=== PATIENT | female | born 1940 | race Caucasian/White ===

== ENCOUNTER 2017-04-01 03:21 | Emergency (ER) | payer MEDICARE ==
[2017-04-01 04:01] LABS: BASOPHILS 0.2 % (0-2); EOSINOPHILS 0.1 % (0-7); HEMATOCRIT 42.3 % (36.0-48.0); HEMOGLOBIN 14.6 g/dL (12-16); IMMATURE GRANULOCYTES 0.7 % (0-5); LYMPHOCYTES 7.1 % (15-50); MCH 30.7 pg (26.0-34.0); MCHC 34.5 g/dL (31.0-37.0); MCV 88.9 fL (80.0-100.0); MEAN PLATELET VOLUME 9.4 fL (7.4-10.4); MONOCYTES 4.5 % (2-11); NEUTROPHILS 87.4 % (40-80); PLATELET COUNT 189 10x3/uL (130-400); RBC 4.76 10x6/uL (4.00-5.40); RDW 13.8 % (11.5-14.5); WBC 10.6 10x3/uL (4.8-10.8)
[2017-04-01 04:16] LABS: ALBUMIN 3.3 g/dL (3.4-5.0); ANION GAP 16.2 mmol/L (8-16); BILIRUBIN - TOTAL 0.2 mg/dL (0.2-1.3); CALCIUM 9.6 mg/dL (8.5-10.1); CREATININE - SERUM 1.8 mg/dL (0.6-1.3); POTASSIUM - SERUM 5.2 mmol/L (3.5-5.1); PROTEIN - SERUM 7.3 g/dL (6.4-8.2)
[2017-04-01 04:41] LABS: APPEARANCE CLEAR (CLEAR); BILIRUBIN NEGATIVE (NEGATIVE); COLOR YELLOW (YELLOW); GLUCOSE NEGATIVE (NEGATIVE); KETONE NEGATIVE (NEGATIVE); LEUKOCYTE ESTERASE NEGATIVE (NEGATIVE); NITRITE NEGATIVE (NEGATIVE); PROTEIN TRACE mg/dL (NEGATIVE); SPECIFIC GRAVITY 1.015 (1.005-1.020); UROBILINOGEN NORMAL (NORMAL)
[2017-04-01 04:43] LABS: BACTERIA NONE SEEN /hpf (NONE SEEN); EPITHELIAL CELLS NSEEN /hpf (0-5); RED CELLS - URINE 0-5 /hpf (0-5); WHITE CELLS - URINE NSEEN /hpf (0-5)
[2017-04-03 02:57] VITALS: BMI 35.2
== END 2017-04-01 05:01 | disposition home or self-care (01) ==
LOC: D.ER 03:21
PROVIDERS: Emergency Medicine
DX: R11.0 Nausea (principal); N18.9 Chronic kidney disease, unspecified; E74.39 Other disorders of intestinal carbohydrate absorption; E87.2 Acidosis; F41.9 Anxiety disorder, unspecified

== ENCOUNTER 2017-04-02 13:49 | Inpatient (IN) | payer MEDICARE ==
[~2017-04-02] VITALS: Ht 152.4 cm; Wt 88.8 kg
--- NOTE | ~2017-04-02 | HEMODYNAMI ---
PATIENT:PALMIRA SIMONS MEDICAL RECORD: [id number] : 36 [id number] ADMISSION DATE: 04/03/17 Generatedon:04/09/201712:04 Patient name: PALMIRA SIMONS Patient #: [id number] SSN: : 1940 Date of study: 04/09/2017 Page: Of Hemodynamic Procedure Report Patient Data Patient Demographics Procedure consent was obtained First Name: PALMIRA Gender: Female Last Name: KRISTYN : 1940 Patient #: [id number] Age: 76 year(s) Race: Unknown Additional ID: [id number] Contact details [address]: [address] [place] [address] State: [place] City: [place] Zip code: [address] Past Medical History Allergies: No known allergies Admission Admission Data Admission Date: 04/03/2017 Admission Time: 16:03 Admit Source: Other Room #: D.2103 Lab Results Lab Result Date: 04/07/2017 Lab Result Time: 0:00 Biochemistry Name Units Result Min Max Creatinine mg/dl 1.4 --(----)*- 0.6 1.3 CBC Name Units Result Min Max Hemoglobin g/dl 10.9 *-(----)-- 13.5 17.5 Procedure Procedure Types Cath Procedure PCI Procedure Coronary Stent Initial x2 Miscellaneous Procedures Moderate Sedation up to 45 minutes Procedure Description Procedure Date Procedure Date: 04/09/2017 Procedure Start Time: 11:31 Procedure End Time: 12:04 Procedure Staff Name Function Vasquez Ortiz MD Performing Physician Radhames Fortune RT Scrub Jayden Araujo RN Nurse Bri Palafox RT Monitor Procedure Data Cath Procedure Fluoroscopy Diagnostic fluoroscopy Total fluoroscopy Time: 6.1 time: 6.1 min min Diagnostic fluoroscopy Total fluoroscopy dose: 728 dose: 728 mGy mGy Contrast Material Contrast Material Type Amount (ml) Isovue 300 101 Entry Location Entry Primary Successful Side Size Upsize Upsize Entry Closure Flores ccessful Closure Location (Fr) 1 (Fr) 2 (Fr) Remarks Device Remarks Radial Right 6 Fr Mechanical artery Short Compression Estimated blood loss: 10 ml Procedure Complications No complications Procedure Medications Medication Administration Route Dosage Oxygen NC 2 l/min Heparin Flush Bag added to field 2 bags (1000units/500ml NS) 0.9% NaCl I.V. 100 ml/hr Radial Cocktail added to field 1 syringe (Verapomil 2mg/Nitro 400mcg/Heparin 1500units) Fentanyl I.V. 50 mcg Versed I.V. 1 mg Fentanyl I.V. 50 mcg Versed I.V. 1 mg Fentanyl I.V. 50 mcg Fentanyl I.V. 50 mcg Versed I.V. 1 mg Heparin Bolus I.V. 8000 units Versed I.V. 1 mg Nitroglycerin IC/IA I.C. 100 mcg Radial Cocktail I.A. 1 syringe (Verapomil 2mg/Nitro 400mcg/Heparin 1500units) Plavix P.O. 600 mg Hemodynamics Rest HGB: 10.9 (g/dl) Heart Rate: 76 (bpm) Snapshots Pre Cath Intra NCS Post Cath Vital Signs Time Heart Resp SPO2 etCO2 [id number] NIBP (mmHg) Rhythm Pain Sedation Rate (ipm) (%) (mmHg) (mmHg) Status Level (bpm) 11:12:32 84 18 96 0 0 159/76(134) NSR 0 (11) 10(A) , No pain 11:16:54 77 17 80 0 0 134/67(119) NSR 0 (11) 10(A) , No pain 11:21:10 77 17 94 0 0 137/67(98) NSR 0 (11) 10(A) , No pain 11:25:30 77 18 95 0 0 132/72(103) NSR 0 (11) 10(A) , No pain 11:29:53 77 16 95 0 0 119/65(101) NSR 0 (11) 9(A) , No pain 11:34:07 89 19 96 0 0 104/56(76) NSR 0 (11) 9(A) , No pain 11:38:19 84 16 94 0 0 111/56(90) NSR 0 (11) 9(A) , No pain 11:42:31 86 16 94 0 0 119/61(79) NSR 0 (11) 9(A) , No pain 11:46:44 84 17 95 0 0 134/70(104) NSR 0 (11) 9(A) , No pain 11:51:04 82 17 96 0 0 141/70(99) NSR 0 (11) 9(A) , No pain 11:55:18 82 17 96 0 0 131/68(106) NSR 0 (11) 9(A) , No pain 11:59:35 85 18 98 0 0 149/79(124) NSR 0 (11) 10(A) , No pain 12:03:55 82 15 97 0 0 146/80(127) NSR 0 (11) 10(A) , No pain Medications Time Medication Route Dose Verified Delivered Reason Note s Effectiveness by by 11:15:32 Oxygen NC 2 l/min Jayden Carpenter Per physician Van Araujo RN RN 11:15:40 Heparin Flush added 2 bags Jayden Jayden used for Bag to Van Araujo RN procedure (1000units/500ml field REY NS) 11:15:49 0.9% NaCl I.V. 100 Jayden Jayden Per physician ml/hr Van Araujo RN RN 11:15:58 Radial Cocktail added 1 Jayden Jayden used for (Verapomil to syringe Van Araujo RN procedure 2mg/Nitro RN 400mcg/Heparin 1500units) 11:23:04 Fentanyl I.V. 50 mcg Jayden Jayden for sedation Van Araujo RN RN 11:23:10 Versed I.V. 1 mg Jayden Jayden for sedation Van Araujo RN RN 11:25:54 Fentanyl I.V. 50 mcg Jayden Jayden for sedation Van Araujo RN RN 11:25:59 Versed I.V. 1 mg Jayden Jayden for sedation Van Araujo RN RN 11:29:55 Fentanyl I.V. 50 mcg Jayden Jayden for sedation Van Araujo RN RN 11:32:19 Radial Cocktail I.A. 1 Jayden Vasquez for (Verapomil syringe Van king 2mg/Nitro RN 400mcg/Heparin 1500units) 11:33:16 Fentanyl I.V. 50 mcg Jayden Jayden for sedation Van Araujo RN RN 11:34:54 Versed I.V. 1 mg Jayden Jayden for sedation Van Araujo RN RN 11:36:47 Heparin Bolus I.V. 8000 Vasquez Jayden for units Angel Araujo RN anticoagulation 11:43:54 Versed I.V. 1 mg Vasquez Carpenter for sedation Angel Araujo RN 11:54:26 Nitroglycerin I.C. 100 mcg Jayden Ovalle for IC/IA Van Ortiz MD vasodilation RN 12:02:26 Plavix P.O. 600 mg Jayden Carpenter for Van Araujo RN antiplatelet RN therapy Procedure Log Time Note 10:40:52 Informed consent obtained and on chart 10:41:14 Admit Source: Other 10:41:16 Diagnostic Cath status Elective 10:41:20 Time tracking: Regular hours 10:41:24 Plan of Care:Hemodynamics will remain stable., Cardiac rhythm will remain stable., Comfort level will be maintained., Respiratory function will remain adequate., Patient/ family verbilizes understanding of procedure., Procedure tolerated without complication., Recovers from procedure without complications.. 10:41:28 Jayden Araujo RN sent for patient. Start room use. 11:05:11 Patient received from PCU to CCL 1 Alert and oriented. Tansferred to table in Supine position. 11:05:13 Warm blankets applied, and jori hugger turned on for patient comfort. 11:05:13 Correct patient and procedure confirmed by team. 11:05:14 ECG and BP/O2 sat monitors applied to patient. 11:05:15 Full Disclosure recording started 11:10:22 Vital chart was started 11:15:32 Oxygen 2 l/min NC was administered by Jayden Araujo RN; Per physician; 11:15:40 Heparin Flush Bag (1000units/500ml NS) 2 bags added to field was administered by Jayden Araujo RN; used for procedure; 11:15:44 Baseline sample Acquired. 11:15:47 Rhythm: sinus rhythm 11:15:49 0.9% NaCl 100 ml/hr I.V. was administered by Jayden Araujo RN; Per physician; 11:15:58 Radial Cocktail (Verapomil 2mg/Nitro 400mcg/Heparin 1500units) 1 syringe added to field was administered by Jayden Araujo RN; used for procedure; 11:17:36 H&P Date Dictated: 04/06/2017 Within 30 days and on chart.. 11:17:38 Pre-procedure instructions explained to patient. 11:17:38 Pre-op teaching completed and patient verbalized understanding. 11:17:40 Family in waiting room. 11:17:41 Patient NPO since Midnight. 11:17:49 Is the patient allergic to Iodine/contrast media? No. 11:17:51 Is patient on blood thinner?No 11:19:32 Patient diabetic? Yes. 11:19:34 If diabetic: On Metformin? No 11:19:42 Previous problem with sedation/anesthesia? No ? 11:19:45 Snore? Yes 11:19:48 Sleep apnea? No 11:19:50 Deviated septum? No 11:19:51 Opens mouth fully? Yes 11:19:51 Sticks out tongue? Yes 11:19:55 Airway obstruction? No ? 11:19:59 Dentures? No ? 11:20:03 Pre procedure: left dorsailis pedis pulse 2+ Normal; easily identifiable; not easily obliterated 11:20:05 Modified Morris's test Ulnar < 7 seconds 11:20:06 Patient pain scale 0/10 ?. 11:20:16 IV patent on arrival in left hand with 0.9% NaCl at [facility]. 11:20:28 Lab results completed and on chart. 11:20:37 Right Radial & Left Groin area was prepped with chlora-prep and draped in sterile fashion 11:20:38 Alarms reviewed by R. N. 11:20:38 Sharps counted by scrub and verified by R.N. 11:20:43 Use device set Radial PCI 11:20:44 Acist Syringe opened to sterile field. 11:20:44 Acist Hand Control opened to sterile field. 11:20:45 Bag Decanter opened to sterile field. 11:20:46 Medline Cath Pack opened to sterile field. 11:20:46 Merit BasixCompak Inflation Kit opened to sterile field. 11:20:47 Terumo 6Fr Slender Glidesheath opened to sterile field. 11:20:48 Acist Manifold opened to sterile field. 11:20:48 Tegaderm 4 x 4 opened to sterile field. 11:20:49 St Nikolay 260cm J .035 wire opened to sterile field. 11:21:56 Final Timeout: patient, procedure, and site verified with staff and physician. All members of the team are in agreement. 11:22:00 Right Radial site verified by team. 11:22:20 Physical assessment completed. ASA score P 2 - A patient with mild systemic disease as per Vasquez Ortiz MD. 11:22:25 Sedation plan: IV Moderate Sedation Versed, Fentanyl 11:23:04 Fentanyl 50 mcg I.V. was administered by Jayden Araujo RN; for sedation; 11:23:10 Versed 1 mg I.V. was administered by Jayden Araujo RN; for sedation; 11:25:54 Fentanyl 50 mcg I.V. was administered by Jayden Araujo RN; for sedation; 11::59 Versed 1 mg I.V. was administered by Jayden Araujo RN; for sedation; 11:29:55 Fentanyl 50 mcg I.V. was administered by Jayden Araujo RN; for sedation; 11:31:28 Procedure started. 11:31:32 Local anesthetic to right radial artery with Lidocaine 2% by Vasquez Ortiz MD.INITIAL ACCESS ONLY 11:32:10 A 6 Fr Short sheath was inserted into the Right Radial artery 11:32:13 Zero performed for pressure channel P1 11:32:19 Radial Cocktail (Verapomil 2mg/Nitro 400mcg/Heparin 1500units) 1 syringe I.A. was administered by Vasquez Ortiz MD; for vasodilation; 11:32:39 Medtronic Launcher 6Fr AR 1.0 guide catheter opened to sterile field. 11:32:40 Cordis 6FR XBLAD 3.5 guide catheter opened to sterile field. 11:33:16 Fentanyl 50 mcg I.V. was administered by Jayden Araujo RN; for sedation; 11:34:16 6 Fr AR 1.0 guide catheter was inserted over the wire 11:34:54 Versed 1 mg I.V. was administered by Jayden Araujo RN; for sedation; 11:36:47 Heparin Bolus 8000 units I.V. was administered by Jayden Araujo RN; for anticoagulation; 11:39:02 BMW wire advanced. 11:40:33 Inflation Number: 1 A Medtronic Integrity 3.0 X 26 stent was prepped and advanced across the Prox RCA. The stent was deployed at 14 ONEYDA for 0:19 (min:sec). 11:40:59 Stent catheter was removed intact over wire. 11:41:00 Wire removed. 11:41:01 Guide catheter removed. 11:42:48 6 Fr XBLAD 3.5 guide catheter was inserted over the wire 11:43:54 Versed 1 mg I.V. was administered by Jayden Araujo RN; for sedation; 11:46:09 BMW wire advanced. 11:50:21 Inflation Number: 1 A Medtronic Integrity 3.0 X 12 stent was prepped and advanced across the Prox LAD. The stent was deployed at 12 ONEYDA for 0:14 (min:sec). 11:52:45 Stent catheter was removed intact over wire. 11:54:26 Nitroglycerin IC/IA 100 mcg I.C. was administered by Vasquez Ortiz MD; for vasodilation; 11:55:57 Wire removed. 11:55:58 Guide catheter removed. 11:56:14 Terumo TR Band Standard opened to sterile field. 11:56:25 Sheath removed intact; hemostasis achieved with Mechanical Compression to the Right Radial artery. 11:56:27 Procedure ended.(Physican Out) 11:56:42 Fluoroscopy time 06.10 minutes. 11:56:47 Flurop Dose total: 728 11:56:47 Fluoroscopy dose: 728 mGy 11:57:18 Sharps counted by scrub and verified by R.N. 11:57:25 TR band inflated with 12cc of air. 11:57:26 Insertion/operative site no bleeding no hematoma. 11:57:33 Post right radial artery:stable, clean and dry 11:57:36 Post Procedure Pulses reassessed and unchanged 11:57:39 Post-procedure physical assessment completed. ASA score P 2 - A patient with mild systemic disease as per Vasquez Ortiz MD. 11:57:41 Post procedure rhythm: unchanged. 11:57:44 Estimated blood loss: 10 ml 11:57:46 Post procedure instruction explained to patient.Patient verbalizes understanding. 11:57:46 Patient needs reinforcement of post procedure teaching. 11:58:20 Procedure type changed to Cath procedure, PCI procedure, Coronary Stent Initial x2, Miscellaneous Procedures, Moderate Sedation up to 45 minutes 11:59:53 Contrast amount:Isovue 300 101ml. 12:00:17 Procedure Complication : No complications 12:00:23 See physician's report for complete and final results. 12:00:51 Cordero BMW Recluse 2 J-tip 300cm 0.014 guide wir opened to sterile field. 12:01:09 High Pressure Extension Tubing (Ortiz) opened to sterile field. 12:01:36 Cook 21G 4cm Radial Needle opened to sterile field. 12:02:26 Plavix 600 mg P.O. was administered by Jayden Araujo RN; for antiplatelet therapy; 12:02:44 Procedure and supply charges have been captured, reviewed, submitted and are correct. 12:04:07 Vital chart was stopped 12:04:11 Report given to PCU. 12:04:15 Patient transfered to PCU with Bed. 12:04:22 Procedure ended. 12:04:22 Full Disclosure recording stopped 12:04:25 End room use (Document Last) Intervention Summary Intervention Notes Time ActionType Lesion and Equipment Action# Pressure Duration Attributes Used 11:40:33 Place stent Prox RCA Medtronic 1 14 00:19 Integrity 3.0 X 26 stent 11:50:21 Place stent Prox LAD Medtronic 1 12 00:14 Integrity 3.0 X 12 stent Device Usage Item Name Manufacture Quantity Catalog Hospital Part Current Minimal Lot# / Number Charge Number Stock Stock Serial# Code Acist Acist 1 [id number] 703520 620534 820944 20 Syringe Medical Systems Inc Acist Hand Acist 1 58032 660927 428428 925779 5 Control Medical Systems Inc Bag Microtek 1 2002S 358831 25195 650807 5 DecDanotek [employer] Medline Cardinal 1 [id number] 075662 03305 628627 TruQC [facility] Merit 1 [id number] 057179 675501 584669 15 BasixRentersQ Medical Inflation Kit Terumo 6Fr Terumo 1 [id number] 985332 971841 016821 40 Slender Glidesheath Acist Acist 1 72448 282333 012771 024123 5 Manifold Medical Systems Inc Tegaderm 4 3M 1 [id number] 216717 330930 266439 [address] Nikolay 1 093367 297247 907133 855115 30 260cm J .035 wire Medtronic Medtronic 1 [id number] 671697 73270 220262 1 Launcher 6Fr AR 1.0 guide catheter Cordis 6FR Cardinal 1 [id number] 760350 677746 819039 10 XBLAD 3.5 Health guide catheter Medtronic Medtronic 1 [id number] 107616 741338 1 Integrity 3.0 X 26 stent Medtronic Medtronic 1 [id number] 651101 379484 1 [id number] Integrity 3.0 X 12 stent Terumo TR Terumo 1 [id number] 469670 239416 693967 40 Band Standard Cordero BMW Cordero 1 [id number] 994524 675654 897090 5 Recluse 2 Vascular J-tip 300cm 0.014 guide wir High Merit 1 [id number] 067775 46631 047588 10 Pressure Medical Extension Tubing (Ortiz) Cook 21G Bountii 1 [id number] 628658 914852 449543 5 4cm Radial Needle Signature Audit [place] Stage Time Signature Unsigned Intra-Procedure 04/09/2017 Bri 12:04:36 PM Counts RT(R) Signatures Monitor : Bri Signature : Counts RT Date : Time : [place] [id number] [place] [address]
--- NOTE | ~2017-04-02 | HEMODYNAMI ---
PATIENT:PALMIRA SIMONS MEDICAL RECORD: [id number] : 36 LOCATION:[address] ADMISSION DATE: 04/03/17 Generatedon:04/07/201715:16 Patient name: PALMIRA SIMONS Patient #: [id number] SSN: : 1940 Date of study: 04/07/2017 Page: Of Hemodynamic Procedure Report Patient Data Patient Demographics Procedure consent was obtained First Name: PALMIRA Gender: Female Last Name: KRISTYN : 1940 Patient #: [id number] Age: 76 year(s) Race: Unknown Additional ID: [id number] Contact details [address]: [address] [place] [address] State: [place] City: [place] Zip code: [address] Past Medical History Allergies: No known allergies Admission Admission Data Admission Date: 04/03/2017 Admission Time: 16:03 Room #: D2103 Lab Results Lab Result Date: 04/07/2017 Lab Result Time: 0:00 Biochemistry Name Units Result Min Max Creatinine mg/dl 1.4 --(----)*- 0.6 1.3 CBC Name Units Result Min Max Hemoglobin g/dl 10.9 *-(----)-- 13.5 17.5 Procedure Procedure Types Cath Procedure Diagnostic Procedure [facility] w/Coronaries Miscellaneous Procedures Moderate Sedation up to 30 minutes Procedure Description Procedure Date Procedure Date: 04/07/2017 Procedure Start Time: 14:54 Procedure End Time: 15:15 Procedure Staff Name Function Vasquez Ortiz MD Performing Physician Radhames Fortune RT Scrub Leeann Nolen RN Nurse Jayden Araujo RN Gas Station Manager Bri Palafox RT Monitor Procedure Data Cath Procedure Fluoroscopy Diagnostic fluoroscopy Total fluoroscopy Time: 3.1 time: 3.1 min min Diagnostic fluoroscopy Total fluoroscopy dose: 424 dose: 424 mGy mGy Contrast Material Contrast Material Type Amount (ml) Isovue 300 68 Entry Location Entry Primary Successful Side Size Upsize Upsize Entry Closure Succes sful Closure Location (Fr) 1 (Fr) 2 (Fr) Remarks Device Remarks Femoral Right 5 Fr Exoseal artery Estimated blood loss: 5 ml Diagnostic catheters Device Type Used For End Catheter Placement Cordis 5Fr JL 4.0 Left Coronary Catheter (MP) Angiography Cordis 5Fr 3DRC Catheter Right Coronary (MP) Angiography Cordis 5Fr Pigtail LV Angiography Catheter (MP) Procedure Complications No complications Procedure Medications Medication Administration Route Dosage Oxygen NC 2 l/min Lidocaine 2% added to field 20 Heparin Flush Bag added to field 2 bags (1000units/500ml NS) 0.9% NaCl I.V. 100 ml/hr Versed I.V. 1 mg Fentanyl I.V. 50 mcg Versed I.V. 0.5 mg Fentanyl I.V. 25 mcg Versed I.V. 0.5 mg Fentanyl I.V. 25 mcg Hemodynamics Rest Heart Rate: 81 (bpm) Pressure Samples Time Site Value (mmHg) Purpose Heart Use Rate(bpm) 15:01 LV 103/6,-1 Snapshot 84 15:02 LV 189/6,22 Snapshot 88 15:04 LV 157/12,28 Snapshot 83 15:04 LV 103/9,10 Snapshot 79 15:06 LV 275/51,24 Snapshot 87 15:07 AO 147/61(93) Pullback 83 15:07 LV 163/6,24 Pullback 83 Gradients Valve Time Site 1 Site 2 Mean SEP/DFP Peak To Heart Use (mmHg) (sec/min) Peak Rate (mmHg) (bpm) Aortic 15:07 LV AO 22 27 16 83 163/6,24 147/61(93) Calculations Valve P-P Mean Valve Index Valve Source Name Gradient Area Flow (cm2) Aortic 16 22 16 22 Snapshots Pre Cath Intra NCS Post Cath Vital Signs Time Heart Resp SPO2 etCO2 FD7zziv NIBP (mmHg) Rhythm Pain Sedation Rate (ipm) (%) (mmHg) (mmHg) Status Level (bpm) 14:43:32 76 17 99 0 0 143/70(108) NSR 0 (11) 10(A) , No pain 14:47:56 77 16 100 0 0 136/65(102) NSR 0 (11) 10(A) , No pain 14:52:15 78 16 100 0 0 133/67(107) NSR 0 (11) 9(A) , No pain 14:56:32 85 17 100 0 0 132/65(103) NSR 0 (11) 9(A) , No pain 15:00:53 80 17 100 0 0 130/73(97) NSR 0 (11) 9(A) , No pain 15:06:12 85 18 100 0 0 136/65(101) NSR 0 (11) 9(A) , No pain 15:10:32 82 18 100 0 0 131/68(103) NSR 0 (11) 9(A) , No pain 15:14:52 81 14 99 0 0 133/70(104) NSR 0 (11) 9(A) , No pain Medications Time Medication Route Dose Verified Delivered Reason Notes Effe ctiveness by by 14:43:21 Oxygen NC 2 Vasquez Buffie used for l/min Angel Nolen RN procedure 14:43:32 Lidocaine 2% added 20ml Vasquez Vasquez for local to vial Angel Ortiz MD anesthetic field 14:43:49 Heparin Flush added 2 Vasquez Vasquez used for Bag to bags Angel Ortiz MD procedure (1000units/500ml field NS) 14:44:25 0.9% NaCl I.V. 100 Vasquez Buffie Per ml/hr Angel Nolen RN physician 14:51:41 Versed I.V. 1 mg Vasquez Buffie for Angel Nolen RN sedation 14:51:47 Fentanyl I.V. 50 Vasquez Buffie for mcg Angel Nolen RN sedation 14:55:18 Versed I.V. 0.5 Vasquez Buffie for mg Angel Nolen RN sedation 14:55:23 Fentanyl I.V. 25 Vasquez Buffie for mcg Angel Nolen RN sedation 15:01:00 Versed I.V. 0.5 Vasquez Buffie for mg Angel Nolen RN sedation 15:01:03 Fentanyl I.V. 25 Vasquez Buffie for mcg Angel Nolen RN sedation Procedure Log Time Note 14:14:53 Jayden Araujo RN sent for patient. Start room use. 14:14:54 Time tracking: Regular hours 14:14:59 Plan of Care:Hemodynamics will remain stable., Cardiac rhythm will remain stable., Comfort level will be maintained., Respiratory function will remain adequate., Patient/ family verbilizes understanding of procedure., Procedure tolerated without complication., Recovers from procedure without complications.. 14:29:18 Patient received from PCU to CCL 1 Alert and oriented. Tansferred to table in Supine position. 14:29:20 Warm blankets applied, and jori hugger turned on for patient comfort. 14:29:20 Correct patient and procedure confirmed by team. 14:29:21 Signed procedure consent form obtained from patient. 14:29:22 ECG and BP/O2 sat monitors applied to patient. 14:29:23 Full Disclosure recording started 14:37:58 Vital chart was started 14:38:01 Rhythm: sinus rhythm 14:38:57 H&P Date Dictated: 04/03/2017 Within 30 days and on chart., H&P Addendum completed by physician on day of procedure. (MUST COMPLETE FOR ALL OUTPATIENTS). 14:38:59 Pre-procedure instructions explained to patient. 14:38:59 Pre-op teaching completed and patient verbalized understanding. 14:39:02 Family in patients room. 14:39:04 Patient NPO since Midnight. 14:39:16 Patient allergic to No known allergies 14:39:20 Is the patient allergic to Iodine/contrast media? No. 14:39:25 Is patient on blood thinner?No 14:39:27 Patient diabetic? Yes. 14:39:42 If diabetic: On Metformin? No 14:39:46 Previous problem with sedation/anesthesia? No ? 14:39:48 Snore? Yes 14:39:50 Sleep apnea? No 14:39:50 Deviated septum? No 14:39:51 Opens mouth fully? Yes 14:39:52 Sticks out tongue? Yes 14:39:57 Dentures? No ? 14:40:00 Airway obstruction? No ? 14:40:08 Pre procedure: right dorsailis pedis pulse 1+ Palpable, but thready & weak; easily obliterated 14:40:11 Patient pain scale 0/10 ?. 14:40:21 IV patent on arrival in left hand with 0.9% NaCl at [facility]. 14:40:30 Lab results completed and on chart. 14:40:44 Lab Result : Creatinine 1.4 mg/dl 14:40:44 Lab Result : Hemoglobin 10.9 g/dl 14:40:52 Right groin area was prepped with chlora-prep and draped in sterile fashion 14:40:55 Alarms reviewed by Adal. N. 14:40:59 Sharps counted by scrub and verified by R.N. 14:43:21 Oxygen 2 l/min NC was administered by Leeann Nolen RN; used for procedure; 14:43:32 Lidocaine 2% 20ml vial added to field was administered by Vasquez Ortiz MD; for local anesthetic; 14:43:49 Heparin Flush Bag (1000units/500ml NS) 2 bags added to field was administered by Vasquez Ortiz MD; used for procedure; 14:44:25 0.9% NaCl 100 ml/hr I.V. was administered by Leeann Nolen RN; Per physician; 14:45:54 Use device set Femoral Dx 14:45:55 Acist Syringe opened to sterile field. 14:45:55 Bag Decanter opened to sterile field. 14:45:56 Medline Cath Pack opened to sterile field. 14:45:56 Terumo 5Fr Columbia Sheath opened to sterile field. 14:45:57 St Nikolay 260cm J .035 wire opened to sterile field. 14:45:58 Acist Hand Control opened to sterile field. 14:45:58 Acist Manifold opened to sterile field. 14:45:59 Diagnostic Infinity 5Fr Multipack catheter opened to sterile field. 14:45:59 Tegaderm 4 x 4 opened to sterile field. 14:46:16 Final Timeout: patient, procedure, and site verified with staff and physician. All members of the team are in agreement. 14:46:18 Right groin site verified by team. 14:46:24 Physical assessment completed. ASA score P 2 - A patient with mild systemic disease as per Vasquez Ortiz MD. 14:46:28 Sedation plan: IV Moderate Sedation Versed, Fentanyl 14:51:41 Versed 1 mg I.V. was administered by Leeann Nolen RN; for sedation; 14:51:47 Fentanyl 50 mcg I.V. was administered by Leeann Nolen RN; for sedation; 14:53:55 Zero performed for pressure channel P1 14:54:44 Baseline sample Acquired. 14:54:46 Procedure started. 14:54:49 Local anesthetic to right femoral artery with Lidocaine 2% by Vasquez Ortiz MD.INITIAL ACCESS ONLY 14:55:18 Versed 0.5 mg I.V. was administered by Buffie Nolen RN; for sedation; 14:55:23 Fentanyl 25 mcg I.V. was administered by Leeann Nolen RN; for sedation; 14:56:41 A 5 Fr sheath was inserted into the Right Femoral artery 14:57:32 A Cordis 5Fr JL 4.0 Catheter (MP) was advanced over the wire and used for Left Coronary Angiography. 14:59:12 Catheter removed. 14:59:17 A Cordis 5Fr 3DRC Catheter (MP) was advanced over the wire and used for Right Coronary Angiography. 15:00:11 Catheter removed. 15:00:16 A Cordis 5Fr Pigtail Catheter (MP) was advanced over the wire and used for LV Angiography. 15:01:00 Versed 0.5 mg I.V. was administered by Leeann Nolen RN; for sedation; 15:01:03 Fentanyl 25 mcg I.V. was administered by Leeann Nolen RN; for sedation; 15:04:47 LV gram done using TANNER 15:04:48 LV hemodynamics recorded. 15:04:50 Injector settings: Ml/sec: 10, Volume: 20, 15:07:54 Catheter removed. 15:08:09 Cordis 5Fr Exoseal opened to sterile field. 15:08:21 Sheath removed intact; hemostasis achieved with Exoseal to the Right Femoral artery. 15:08:23 Procedure ended.(Physican Out) 15:08:52 Fluoroscopy time 03.10 minutes. 15:08:56 Fluoroscopy dose: 424 mGy 15:08:56 Flurop Dose total: 424 15:09:29 Contrast amount:Isovue 300 68ml. 15:09:31 Sharps counted by scrub and verified by R.N. 15:09:32 Insertion/operative site no bleeding no hematoma. 15:09:35 Post-op/insertion site Right Femoral artery dressed using a 4 x 4 and Tegaderm. 15:09:38 Post right femoral artery:stable, clean and dry 15:09:40 Post Procedure Pulses reassessed and unchanged 15:09:46 Post-procedure physical assessment completed. ASA score P 2 - A patient with mild systemic disease as per Vasquez Ortiz MD. 15:09:49 Post procedure rhythm: unchanged. 15:09:51 Estimated blood loss: 5 ml 15:09:53 Post procedure instruction explained to patient.Patient verbalizes understanding. 15:09:53 Patient needs reinforcement of post procedure teaching. 15:10:27 Procedure type changed to Cath procedure, Diagnostic procedure, LHC, LHC w/Coronaries, Miscellaneous Procedures, Moderate Sedation up to 30 minutes 15:10:33 Procedure Complication : No complications 15:10:35 See physician's report for complete and final results. 15:10:52 Procedure and supply charges have been captured, reviewed, submitted and are correct. 15:14:50 Vital chart was stopped 15:14:52 Report given to PCU. 15:15:10 Patient transfered to PCU with Bed. 15:15:12 Procedure ended. 15:15:12 Full Disclosure recording stopped 15:15:20 End room use (Document Last) Device Usage Item Name Manufacture Quantity Catalog Hospital Part Current Minimal Lo t# / Number Charge Number Stock Stock Serial# Code Acist Acist 1 26610 [id number] 151226 991062 20 Syringe Medical Systems Inc Bag Microtek 1 2002S 012541 26848 071748 5 Decanter Medical Inc. Medline Cardinal 1 [id number] 529525 43995 815955 5 Cath Pack Health Terumo 5Fr Terumo 1 [id number] 653349 387186 528[address] St Nikolay 1 [id number] 932067 649102 079521 30 260cm J .035 wire Acist Hand Acist 1 57186 470749 941253 085023 5 Control Medical Systems Inc Acist Acist 1 91586 946203 973075 589205 5 Manifold Medical Systems Inc Diagnostic Cardinal 1 IR4743 326586 92736 573855 30 Infinity Health 5Fr Multipack catheter Tegaderm 4 3M 1 1626W 601308 371033 009487 5 x 4 Cordis 5Fr Cardinal 1 701076 5 JL 4.0 Health Catheter (MP) Cordis 5Fr Cardinal 1 637922 5 3DRC Health Catheter (MP) Cordis 5Fr Cardinal 1 [id number] 5 Pigtail Health Catheter (MP) Cordis 5Fr Cardinal 1 EX500 381101 197980 648610 10 Kollabora Signature Audit [place] Stage Time Signature Unsigned Intra-Procedure 04/07/2017 Bri 3:16:17 PM Counts RT(R) Signatures Monitor : Bri Signature : Counts RT Date : Time : [address] [place] [address]
[2017-04-02 14:50] LABS: APPEARANCE CLEAR (CLEAR); BILIRUBIN NEGATIVE (NEGATIVE); COLOR YELLOW (YELLOW); GLUCOSE NEGATIVE (NEGATIVE); KETONE SMALL mg/dL (NEGATIVE); LEUKOCYTE ESTERASE NEGATIVE (NEGATIVE); NITRITE NEGATIVE (NEGATIVE); PROTEIN TRACE mg/dL (NEGATIVE); RED CELLS - URINE OCC /hpf (0-5); SPECIFIC GRAVITY 1.015 (1.005-1.020); UROBILINOGEN NORMAL (NORMAL)
[2017-04-02 14:51] LABS: BACTERIA FEW /hpf (NONE SEEN); EPITHELIAL CELLS RARE /hpf (0-5)
[2017-04-02 14:58] LABS: BASOPHILS 0.1 % (0-2); EOSINOPHILS 0.1 % (0-7); HEMATOCRIT 42.9 % (36.0-48.0); HEMOGLOBIN 14.8 g/dL (12-16); IMMATURE GRANULOCYTES 0.8 % (0-5); LYMPHOCYTES 11.7 % (15-50); MCH 30.7 pg (26.0-34.0); MCHC 34.5 g/dL (31.0-37.0); MEAN PLATELET VOLUME 9.4 fL (7.4-10.4); MONOCYTES 2.6 % (2-11); NEUTROPHILS 84.7 % (40-80); RBC 4.82 10x6/uL (4.00-5.40); RDW 13.8 % (11.5-14.5); WBC 8.9 10x3/uL (4.8-10.8)
[2017-04-02 14:59] LABS: PLATELET COUNT 147 10x3/uL (130-400)
[2017-04-02 15:23] LABS: ALBUMIN 3.2 g/dL (3.4-5.0); ANION GAP 21.3 mmol/L (8-16); BILIRUBIN - TOTAL 0.33 mg/dL (0.2-1.3); CALCIUM 9.1 mg/dL (8.5-10.1); CARBON DIOXIDE 18.2 mmol/L (21.0-32.0); CREATININE - SERUM 2.2 mg/dL (0.6-1.3); POTASSIUM - SERUM 4.5 mmol/L (3.5-5.1); PROTEIN - SERUM 6.9 g/dL (6.4-8.2)
[2017-04-02 16:19] LABS: LIPASE 95 U/L (73-393); PRO BNP 1292 pg/mL (0-450)
[2017-04-02 19:00] VITALS: BP 109/50
[2017-04-02 19:09] LABS: CKMB 1.6 U/L (0.0-3.6); CREATINE KINASE 290 UL (21-215); TROPONIN-I < 0.017 ng/mL (0.000-0.060)
--- NOTE | 2017-04-02 20:33 | NUR ---
PT LYING IN BED ON HER LEFT SIDE, FAMILY AT BEDSIDE. PT DENIES NAUSEA AT THIS TIME. PT STATES SHE CANNOT TAKE MELATONIN R/T TACHYCARDIA AND PALPITATIONS, AND IS ALSO REQUESTING PAIN MEDICATION. PT STATES SHE IS HAVING GREAT BLE PAIN, MAINLY IN HER FEET. PT STATES SHE DOES NOT TAKE ANYTHING FOR HER HYPERGLYCEMIA AT THIS TIME, BUT STATES SHE DID TAKE METFORMIN AND HAD TO QUIT R/T HER KIDNEY FUNCTION. PT IS LYING IN BED WITH MULTIPLE BLANKETS ON, C/O BEING COLD. I ASKED PT ABOUT HER THYROID, IN WHICH SHE STATES SHE DOES NOT TAKE ANYTHING FOR IT ANYMORE. PT ADMITS TO NOT SEEING HER PCP REGULARLY BUT DOES HAVE AN APPOINTMENT WITH HIM THIS COMING THURSDAY. PT UNDERSTANDS SHE IS ON A CLEAR LIQUID DIET, I HAVE EXPLAINED THE REASONING FOR FSBS AND INSULIN WHILE HER IN THE HOSPITAL AND WILL CALL PHYSICIAN [employer] PRODUCT TESTER FOR FURTHER ORDERS PER PT REQUEST. PT REMAINS ALERT AND ORIENTED. CONTINUE TO MONITOR CLOSELY.
[2017-04-02 22:38] LABS: CKMB 1.1 U/L (0.0-3.6); CREATINE KINASE 257 UL (21-215)
[2017-04-02 22:39] LABS: TROPONIN-I < 0.017 ng/mL (0.000-0.060)
--- NOTE | 2017-04-02 23:14 | NUR ---
FAMILY REQUESTED SOMETHING OTHER THAN TRAMADOL FOR PTS PAIN, STATING THAT SHE DOES NOT LIKE TAKING THAT, BUT THEN STATED THAT SHE DID WANT IT AFTER ALL. WHEN I WENT TO GIVE THE RX, PT WAS SLEEPING, RESPIRATIONS EVEN AND UNLABORED. WILL CONTINUE TO MONITOR CLOSELY.
[2017-04-03] VITALS (8 sets, daily range): BP systolic 94–139; BP diastolic 37–66; BMI 35.2
--- NOTE | 2017-04-03 03:54 | NUR ---
PT HAS BEEN RESTLESS, AGITATED, DEMONSTRATING INCEASED ANXIETY, CONFUSION, IRRITABILITY, AND UNCOOPERATIVE AT TIMES. PT C/O INTERMITTENT CHEST PAIN WITH PRESSURE, UNRELIEVED WITH POSITION CHANGE. PT REFUSED TO TAKE HER PO TRAMADOL SEVERAL TIMES, PT HAS DENIED NAUSEA OR VOMITING, AND STATES THAT SHE JUST CANNOT GET COMFORTABLE. PT ADMITS TO BEING VERY ANXIOUS R/T HER NEW DX OF "CHF", AND STATES SHE DOES NOT KNOW HOW THIS HAPPENED, OR HOW SHE IS GOING TO LIVE WITH AND DEAL WITH IT AFTER SHE GETS HOME. PT HAS BEEN INCONSOLABLE FOR THE MAJORITY OF THIS SHIFT SO FAR. ECG PERFORMED PER ORDER, LABS REVIEWED, AND MAURICE RIVERO PAGED FOR FURTHER ORDERS @ 03:30. PRN MORPHINE ORDERED FOR CHEST PAIN ALONG WITH AN ORDER FOR A VQ SCAN R/T ELEVATED D-DIMER. PT IS CURRENTLY RESTING COMFORTABLY IN HER BED AFTER PRN MORPHINE AND ZOFRAN GIVEN. PT REASSURED THAT SHE IS SAFE AND IS BEING MONITORED CLOSELY. BED LOW, CALL LIGHT IN REACH, SIDE RAILS X 2, HOB FLAT. I HAVE ENCOURAGED PT TO ELEVATE HOB, IN WHICH DID TRY, BUT STATES IT MAKES THE CHEST PAIN AND PRESSURE WORSE. CONTINUE TO MONITOR.
--- NOTE | 2017-04-03 04:34 | NUR ---
I ASKED PT IF SHE STILL HAS HER GALLBLADDER, AND SHE STATED YES. SHE STATED THAT HER DAUGHTER HAD TO HAVE HER GALLBLADDER REMOVED, AND THEY WERE TALKING ABOUT THE S/S RECENTLY. PT STATED THAT SHE HAS QUESTIONED WHETHER THE NAUSEA, VOMITING, CHEST PAIN, AND PRESSURE COULD BE RELATED TO GALLBLADDER DYSFUNCTION. PT CURRENTLY RESTING COMFORTABLY AFTER THE PRN MORPHINE AND ZOFRAN, STATING THERE IS NO PAIN AT THIS TIME. CONTINUE TO MONITOR CLOSELY.
[2017-04-03 05:39] LABS: BASOPHILS 0.2 % (0-2); EOSINOPHILS 0 % (0-7); HEMATOCRIT 39.8 % (36.0-48.0); HEMOGLOBIN 13.8 g/dL (12-16); IMMATURE GRANULOCYTES 0.4 % (0-5); LYMPHOCYTES 39.8 % (15-50); MCH 30.5 pg (26.0-34.0); MCHC 34.7 g/dL (31.0-37.0); MCV 87.9 fL (80.0-100.0); MEAN PLATELET VOLUME 9.4 fL (7.4-10.4); MONOCYTES 7.5 % (2-11); NEUTROPHILS 52.1 % (40-80); PLATELET COUNT 137 10x3/uL (130-400); RBC 4.53 10x6/uL (4.00-5.40); RDW 13.5 % (11.5-14.5)
[2017-04-03 06:10] LABS: ALKALINE PHOSPHATASE 104 U/L (46-116); ALT (SGPT) 35 U/L (10-68); CALC OSMOLALITY 276 mosm/kg (275-300); CALCIUM 8.9 mg/dL (8.5-10.1); CHLORIDE - SERUM 98 mmol/L (98-107); CKMB 1.3 U/L (0.0-3.6); CREATINE KINASE 268 UL (21-215); GLUCOSE 164 mg/dL (74-106); SODIUM 131 mmol/L (136-145); TROPONIN-I < 0.017 ng/mL (0.000-0.060); UREA NITROGEN 41 mg/dL (7-18); eGFR NON AFRICAN AMERICAN 17 mL/min (90-120)
[2017-04-03 06:11] LABS: CREATININE - SERUM 2.9 mg/dL (0.6-1.3)
--- NOTE | 2017-04-03 07:07 | NUR ---
PT LAYING TO LEFT SIDE SLEEPING RR EVEN AND UNLABORED. NO S/S DISTRESS NOTED. ARROUSES EASILY. WILL CONT TO MONITOR
[2017-04-03 07:08] LABS: MAGNESIUM - SERUM 1.5 mg/dL (1.8-2.4); PHOSPHOROUS 4.4 mg/dL (2.5-4.9)
--- NOTE | 2017-04-03 07:33 | NUR ---
PT BP IS LOW. 75/49. PT IS UNSYMPTOMATIC DENIES ANY DIZZINESS ETC. PT AGREED TO HAVE FLUIDS, SHE WAS REFUSING IV FLUIDS BEFORE. STARTED BACK WITH BOLUS OF 200 CC TO ELEVATE BP. WILL CONT TO MONITOR.
--- NOTE | 2017-04-03 08:58 | NUR ---
PT BP BACK UP TO 115/66. CARDIOLOGY DC LASIX AND SAID TO KEEP ON FLUIDS
--- NOTE | 2017-04-03 10:51 | NUR ---
PT WAS UNABLE TO DO LUNG SCAN R/T ANXIETY TO TAKE THE SCAN. ASKED PT WHEN SHE GOT BACK IF SHE WOULD BE ABLE TO DO IT IF WE GAVE HER SOMETHING TO HELP WITH ANXIETY. PT REPLIED "I WOULD RATHER NOT DO IT AT ALL! IS IT ABSOLUTELY NECESSARY?" PT AND PT FAMILY WOULD LIKE TO SPEAK WITH THE DR TO SEE IF THE TEST IS ABSOLUTELY NECESSARY BEFORE THEY PROCEED WITH IT.
[2017-04-03] MEDS ORDERED: XANAX0.5 MG PO (13:02)
[2017-04-03] MEDS ORDERED: AVAPRO150 MG PO (13:03)
[2017-04-03] MEDS ORDERED: TOPROL XL100 MG PO (13:03)
[2017-04-03] MEDS ORDERED: COMPAZINE10 MG PO (13:05)
--- NOTE | 2017-04-03 14:23 | NUR ---
CALLED DR OSORIO OFFICE TO RECEIVE LABS FROM THE PAST YEAR. THEIR OFFICE IS CLOSED. LEFT A VOICEMAIL. WILL PASS ALONG IN REPORT THAT THESE RECORDS STILL NEED TO BE OBTAINED
--- NOTE | 2017-04-03 16:12 | NUR ---
WAITING ON ADELINE TO CALL FROM [facility] TO GIVE PT ATIVAN. ATIVAN IS PREOP MED FOR IMAGING.
[2017-04-03] MEDS ORDERED: NEXIUM40 MG PO (18:04)
--- NOTE | 2017-04-03 18:35 | NUR ---
PT SITTING UP IN BED DENIES ANY NEEDS AT THIS TIME WATCHING TV
--- NOTE | 2017-04-03 19:40 | NUR ---
PATIENT RESTING IN BED WITH NO VISIBLE SIGNS OF DISTRESS AND DENIES NEEDS AT THIS TIME. BED IN LOWEST POSITION AND CALL LIGHT WITHIN REACH. ENCOURAGED THE PATIENT TO CALL IF SHE HAS NEEDS.
[2017-04-04] VITALS: BP 125/48
[2017-04-04 04:00] VITALS: BP 125/51
[2017-04-04 05:29] LABS: BASOPHILS 0.1 % (0-2); EOSINOPHILS 0.8 % (0-7); HEMATOCRIT 35.8 % (36.0-48.0); HEMOGLOBIN 12.4 g/dL (12-16); IMMATURE GRANULOCYTES 0.4 % (0-5); LYMPHOCYTES 40.4 % (15-50); MCH 30.2 pg (26.0-34.0); MCHC 34.6 g/dL (31.0-37.0); MCV 87.1 fL (80.0-100.0); MEAN PLATELET VOLUME 9.5 fL (7.4-10.4); MONOCYTES 10.2 % (2-11); NEUTROPHILS 48.1 % (40-80); PLATELET COUNT 136 10x3/uL (130-400); RBC 4.11 10x6/uL (4.00-5.40); RDW 13.6 % (11.5-14.5); WBC 8.3 10x3/uL (4.8-10.8)
[2017-04-04 05:59] LABS: ALBUMIN 2.6 g/dL (3.4-5.0); BILIRUBIN - TOTAL 0.3 mg/dL (0.2-1.3); CALCIUM 8.3 mg/dL (8.5-10.1); CARBON DIOXIDE 17.7 mmol/L (21.0-32.0); CREATININE - SERUM 3.4 mg/dL (0.6-1.3); MAGNESIUM - SERUM 1.8 mg/dL (1.8-2.4); PHOSPHOROUS 4.1 mg/dL (2.5-4.9); POTASSIUM - SERUM 3.7 mmol/L (3.5-5.1); PROTEIN - SERUM 6.3 g/dL (6.4-8.2)
--- NOTE | 2017-04-04 07:32 | NUR ---
PATIENT SITTING UP IN BED WATCHING TV. PROVIDED ICE PER REQUEST WILL CONTINUE TO MONITOR.
[2017-04-04 08:04] VITALS: BP 109/66
[2017-04-04 10:28] VITALS: Ht 152.4 cm; Wt 88.8 kg
--- NOTE | 2017-04-04 11:07 | NUR ---
FSBS 190. 2 UNITS GIVEN PER SLIDING SCALE.
[2017-04-04 12:00] VITALS: BP 124/49
--- NOTE | 2017-04-04 12:00 | NUR ---
PATIENT SITTING UP IN BED, FAMILY AT BEDSIDE. DENIES NEEDS. RESP EVEN AND UNLABORED. NO ACUTE DISTRESS. CALL LIGHT WITHIN REACH.
--- NOTE | 2017-04-04 14:05 | NUR ---
PATIENT COMPLAINED OF HEAD ACHE. NURSE PRACTIONER ON UNIT RECIEVED NEW ORDER FOR TYLENOL
--- NOTE | 2017-04-04 15:12 | NUR ---
REASSESSED PAIN LEVEL. PATIENT STATES PAIN HAS INCREASED FROM 5 TO 6. HOWEVER PATIENT SITTING IN BED LAUGHING AND CONVERSING WITH VISTORS IN ROOM.
[2017-04-04 16:00] VITALS: BP 125/72
--- NOTE | 2017-04-04 16:36 | NUR ---
FSBS 149. NO INSULIN GIVEN PER SLIDING SCALE.
--- NOTE | 2017-04-04 19:45 | NUR ---
PT RESTING IN BED. ALERT/ORIENTED AND VISITING WITH FRIEND. SR PER TELEMETRY. NS @ 30ML/HR TO LFA. REPORTS HEADACHE MUCH BETTER SINCE RECIEVING TYLENOL. SEE ASSESSMENT. CPOC.
[2017-04-04 20:00] VITALS: BP 115/55
[2017-04-05 02:00] VITALS: BP 115/47
[2017-04-05 04:00] VITALS: BP 145/68
--- NOTE | 2017-04-05 05:15 | NUR ---
PT HAS RESTED WELL SINCE RECIEVING IV MORPHINE AND XANAX FOR AN EPISODE OF CHEST PAIN AND ANXIETY. PT DESCRIBED CHEST PAIN "QUICK, LIKE A TIGHT BAND ACROSS MY CHEST". HER TELEMETRY SHOWED SR 80'S. CPOC.
[2017-04-05 06:08] LABS: BASOPHILS 0.1 % (0-2); HEMATOCRIT 33.2 % (36.0-48.0); HEMOGLOBIN 11.6 g/dL (12-16); IMMATURE GRANULOCYTES 0.4 % (0-5); LYMPHOCYTES 39.3 % (15-50); MCH 30.4 pg (26.0-34.0); MCHC 34.9 g/dL (31.0-37.0); MCV 86.9 fL (80.0-100.0); MEAN PLATELET VOLUME 9.6 fL (7.4-10.4); MONOCYTES 9.9 % (2-11); NEUTROPHILS 49.3 % (40-80); PLATELET COUNT 144 10x3/uL (130-400); RBC 3.82 10x6/uL (4.00-5.40); RDW 13.5 % (11.5-14.5); WBC 7.9 10x3/uL (4.8-10.8)
[2017-04-05 06:32] LABS: ALBUMIN 2.4 g/dL (3.4-5.0); ANION GAP 16.2 mmol/L (8-16); BILIRUBIN - TOTAL 0.28 mg/dL (0.2-1.3); CALCIUM 8.4 mg/dL (8.5-10.1); CARBON DIOXIDE 19.7 mmol/L (21.0-32.0); POTASSIUM - SERUM 3.9 mmol/L (3.5-5.1); URIC ACID 10.1 mg/dL (2.6-7.2)
[2017-04-05 06:34] LABS: CREATININE - SERUM 2.2 mg/dL (0.6-1.3)
--- NOTE | 2017-04-05 07:11 | NUR ---
PT SITTING ON SIDE OF BED AFTER USING THE RESTROOM. PROVIDED ICE AND DIET SPRITE PER REQUEST. WILL CONTINUE TO MONITOR.
[2017-04-05 08:19] VITALS: BP 92/56
[2017-04-05 11:31] VITALS: BP 122/50
[2017-04-05 15:12] VITALS: BP 124/60
[2017-04-05 15:35] LABS: APPEARANCE CLEAR (CLEAR); BILIRUBIN NEGATIVE (NEGATIVE); COLOR YELLOW (YELLOW); GLUCOSE NEGATIVE (NEGATIVE); KETONE NEGATIVE (NEGATIVE); LEUKOCYTE ESTERASE NEGATIVE (NEGATIVE); NITRITE NEGATIVE (NEGATIVE); PH 5.5 (5.0-6.0); PROTEIN NEGATIVE (NEGATIVE); SPECIFIC GRAVITY 1.015 (1.005-1.020); UROBILINOGEN NORMAL (NORMAL)
[2017-04-05 16:35] LABS: CKMB 2.7 U/L (0.0-3.6); CREATINE KINASE 91 UL (21-215)
[2017-04-05 16:43] LABS: TROPONIN-I 0.401 ng/mL (0.000-0.060)
--- NOTE | 2017-04-05 16:52 | NUR ---
NOTIFIED MAURICE RIVERO NP OF PTs ELEVATED TROPONIN
--- NOTE | 2017-04-05 17:07 | NUR ---
SITTING IN BED, CONSUMING PM MEAL. FAMILY AT BEDSIDE. RESP EVEN AND UNLABORED. DENIES NEEDS. CALL LIGHT WITHIN REACH. NO DISTRESS.
--- NOTE | 2017-04-05 19:30 | NUR ---
RECEIVED AWAKE/ALERT AND VISITING WITH FRIEND. SALINE LOCK TO LFA. NONLABORED RESPIRATIONS ON ROOM AIR. SR PER TELEMETRY. SCDS DECLINED. SEE ASSESSMENT, MONITOR AND CPOC.
[2017-04-06] VITALS (7 sets, daily range): BP systolic 119–155; BP diastolic 42–68
--- NOTE | 2017-04-06 04:58 | NUR ---
AWAKE AND EATING A SNACK. VOICING NO NEEDS. MONITOR AND CPOC.
[2017-04-06 05:46] LABS: BASOPHILS 0.2 % (0-2); EOSINOPHILS 1.8 % (0-7); HEMATOCRIT 34.7 % (36.0-48.0); IMMATURE GRANULOCYTES 0.8 % (0-5); LYMPHOCYTES 42.5 % (15-50); MCH 30.1 pg (26.0-34.0); MCHC 34.6 g/dL (31.0-37.0); MEAN PLATELET VOLUME 9.4 fL (7.4-10.4); MONOCYTES 9.3 % (2-11); NEUTROPHILS 45.4 % (40-80); RBC 3.99 10x6/uL (4.00-5.40); RDW 13.4 % (11.5-14.5)
[2017-04-06 05:49] LABS: PLATELET COUNT 190 10x3/uL (130-400)
[2017-04-06 06:08] LABS: ALBUMIN 2.6 g/dL (3.4-5.0); ANION GAP 16.6 mmol/L (8-16); BILIRUBIN - TOTAL 0.3 mg/dL (0.2-1.3); CALCIUM 8.6 mg/dL (8.5-10.1); CARBON DIOXIDE 20.1 mmol/L (21.0-32.0); POTASSIUM - SERUM 3.7 mmol/L (3.5-5.1); PROTEIN - SERUM 6.4 g/dL (6.4-8.2)
[2017-04-06 06:09] LABS: CREATININE - SERUM 1.6 mg/dL (0.6-1.3)
--- NOTE | 2017-04-06 06:28 | NUR ---
PT'S AM LAB BLOOD GLUCOSE 162. SHE WANTS TO NOT TAKE AM SLIDING SCALE INSULIN BECAUSE THAT WAS NOT A FASTING BLOOD SUGAR AND SHE WANTS TO SEE HOW SHE DOES AFTER EATING BREAKFAST AND THEN RECHECKING SUGAR LEVEL AT LUNCH TIME.
--- NOTE | 2017-04-06 07:40 | NUR ---
AN ROUNDING DONE WITH PATIENT APPEARING TO BE ALSEEP, LAYING ON LEFT SIDE WITH RESP EVEN AND NON LABORED. ON ROOM AIR. ON HEART MONITOR SHOWING SR, HR 82. WAS TOLD IN REPORT THAT PATIENT HAS A SALINE LOCK TO LEFT FA, WILL ASSESS WHEN AWAKE. ON EP, LAB VALUES ARE NORMAL. WILL CPOC.
--- NOTE | 2017-04-06 11:53 | NUR ---
POC GLUCOSE IS 197. PATIENT STATES THAT SHE DOES NOT WANT ANY INSULIN TO COVER FOR THIS.
--- NOTE | 2017-04-06 13:24 | NUR ---
Nutrition follow-up: Visited with pt during meal rounds. Helped pt fill out menus and CHO count. Diet: ADA consistent CHO PO intake 75-100% of meals +BM Labs reviewed RDN following.
--- NOTE | 2017-04-06 15:58 | NUR ---
Patient Name: PALMIRA SIMONS Admission Status: ER Accout number: [id number] Admission Date: 04-03-2017 : 1940 Admission Diagnosis: Attending: SHWETA Current LOS: 3 Anticipated DC Date: 04-08-2017 Planned Disposition: Inpatient Rehab Primary Insurance: MEDICARE A & B PLANNED EXTERNAL PROVIDER: [facility] Discharge Planning Comments: * Is the patient Alert and Oriented? Yes 0 * How many steps to enter\exit or inside your home? 1 0 * PCP DR. OSORIO 0 * Pharmacy [facility], [employer] [facility] OR [facility] MAIL ORDER 0 * Preadmission Environment Home Alone 0 * ADLs Independent 0 * Equipment None 0 * Other Equipment NO MEDICAL EQUIPMENT PROVIDER PREFERENCE 0 * List name and contact numbers for known caregivers / representatives who currently or will assist patient after discharge: CARMINE FELIPE, DTR, 0 * Community resources currently utilized None 0 * Please name any agencies selected above. NONE 0 * Additional services required to return to the preadmission environment? Yes * Can the patient safely return to the preadmission environment? Yes 0 * Has this patient been hospitalized within the prior 30 days at any hospital? No 0 CM MET WITH PT IN ROOM TO DISCUSS DISCHARGE PLANNING AND NEEDS. PT STATED SHE HAD BEEN WAITING ON CM TO HELP HER GET INTO REHAB DOWNSTAIRS. PT REPORTS LIVING AT HOME INDEPENDENTLY AND ALONE. PT HAS NO MEDICAL EQUIPMENT AND NO OUTSIDE SERVICES ASSISTING IN THE HOME. CM DISCUSSED AVAILABILITY OF HOME HEALTH, REHAB SERVICES AND MEDICAL EQUIPMENT. PT WOULD LIKE TO BE PLACED IN THE REHAB DOWNSTAIRS AT [place], SHE FEELS SHE CAN TOLERATE THREE HOURS OF PROGRESSIVE THERAPY AND HER GOAL IS TO RETURN HOME AGAIN, INDEPENDENTLY AND RESUME GOING TO HER GYM FOR WORKOUTS THERE. PT REPORTS FAMILY OR A FRIEND WILL PICK HER UP FOR DISCHARGE HOME. IMPORTANT MESSAGE FROM MEDICARE PROVIDED AND EXPLAINED. PT WOULD LIKE TO BE EVALUATED FOR INPATIENT REHAB AT [place] FOR REHAB PRIOR TO GOING HOME. CM TO FOLLOW AND ASSIST NEEDED. Real Estate Lawyer: Jb Sandoval
--- NOTE | 2017-04-06 16:54 | NUR ---
SITTING UP IN BED EATING SUPPER, FEMALE FRIEND AT BEDSIDE. DENIES ANY NEEDS AT PRESENT TIME. WILL CPOC.
--- NOTE | 2017-04-06 19:20 | NUR ---
RECIEVED SHIFT REPORT. PT IS LYING IN BED. ALERT AND ORIENTED AND ABLE TO VERBALIZE NEEDS. IV IS PATENT AND SALINE LOC AT THIS TIME. PT IS AMBULATORY BUT WAS INSTRUCTED TO CALL FOR ANY ASSISTANCE NEEDED. PT STATES PAIN IS 5/10. NO NEEDS ARE VERBALIZED AT THIS TIME. WILL CONTINUE TO MONITOR. SIDE RAILS ARE UP X 2. BED IS IN LOWEST POSITION. CALL LIGHT IS WITHIN REACH.
--- NOTE | 2017-04-06 21:35 | NUR ---
SHIFT ASSESSMENT COMPLETED. PT RECIEVED NO INSULIN PER SLIDING SCALE FOR MDTC=974. PT C/O PAIN 03/07. PER PT REQUEST ADMINISTERED PRESCRIBED PRN TYLENOL AND 1/2 TABLET SCHEDULED PRN ULTRAM. NO FURTHER NEEDS VOICED AT THIS TIME. WILL MONITOR. SIDE RAILS X 2. BED LOW. CALL LIGHT IN REACH.
--- NOTE | 2017-04-07 03:26 | NUR ---
PT RESTING IN BED WITH NO DISTRESS. RESPIRATIONS ARE EVEN AND UNLABORED. SIDE RAILS X 2. BED IS LOW. CALL LIGHT IN REACH.
[2017-04-07 05:12] LABS: BASOPHILS 0.2 % (0-2); EOSINOPHILS 2.8 % (0-7); HEMATOCRIT 31.1 % (36.0-48.0); HEMOGLOBIN 10.9 g/dL (12-16); IMMATURE GRANULOCYTES 2.1 % (0-5); LYMPHOCYTES 40.1 % (15-50); MCH 30.5 pg (26.0-34.0); MCV 87.1 fL (80.0-100.0); MEAN PLATELET VOLUME 9.5 fL (7.4-10.4); MONOCYTES 9.4 % (2-11); NEUTROPHILS 45.4 % (40-80); PLATELET COUNT 191 10x3/uL (130-400); RBC 3.57 10x6/uL (4.00-5.40); RDW 13.4 % (11.5-14.5); WBC 9.2 10x3/uL (4.8-10.8)
[2017-04-07 05:35] LABS: ALBUMIN 2.5 g/dL (3.4-5.0); ANION GAP 13.1 mmol/L (8-16); BILIRUBIN - TOTAL 0.3 mg/dL (0.2-1.3); CALCIUM 8.2 mg/dL (8.5-10.1); CARBON DIOXIDE 22.2 mmol/L (21.0-32.0); CREATININE - SERUM 1.4 mg/dL (0.6-1.3); POTASSIUM - SERUM 3.3 mmol/L (3.5-5.1); PROTEIN - SERUM 5.8 g/dL (6.4-8.2)
[2017-04-07 05:36] VITALS: BP 141/67
--- NOTE | 2017-04-07 07:57 | NUR ---
AM ROUNDING DONE WITH PATIENT APPEARING TO BE ASLEEP, LAYING ON LEFT SIDE. RESP ARE EVEN AND NON LABORED. ON ROOM AIR. ON HEART MONITOR SHOWING SR, HR 73. SALINE LOCK SEEN TO LEFT FA. ON EP, K+ IS 3.3. THIS WAS COVERED ON PREVIOUS SHIFT AND RE-DRAW HAS BEEN ORDERED. PATIENT IS UP AD AMINAH. WILL CPOC.
[2017-04-07 08:34] VITALS: BP 112/58
--- NOTE | 2017-04-07 09:08 | NUR ---
HEART CATH PERMITS SIGNED. PATIENT IS MADE NPO. IV OF NS TO INFUSE AT 25 CC/HR ORDERD.
--- NOTE | 2017-04-07 10:17 | EC ---
PATIENT:PALMIRA SIMONS DATE OF SERVICE: 04/03/17 SEX: F MEDICAL RECORD: [id number] DATE OF : 36 LOCATION:D.M2 D.210 AGE OF PATIENT: 76 ADMISSION DATE: 04/03/17 REFERRING PHYSICIAN: INTERPRETING PHYSICIAN: ARTUR WELLS MD ECHOCARDIOGRAM REPORT ECHO CHARGES 4 ECHO COMPLETE CLINICAL DIAGNOSIS: DYSPNEA ECHOCARDIOGRAPHIC MEASUREMENTS (adult normal given) AC root (d.<3.7cm) 3.1 LV Septum d (<1.2 cm> 1.6 Valve Excursion 1.6 LV Septum (systole) 1.9 Left Atria (s.<4.0cm> 4.2 LVPW d(<1.2cm) 1.8 RV (d.<2.3cm) 2.9 LVPW (sytole) 2.0 LV diastole(<5.6CM) 3.6 MV E-F(>70mm/sec) LV systole 2.5 LVOT Diameter 1.8 MV exc.(>10mm) 1.5 Est.ejection fraction (50-75%) Pericardial Effusion N DOPPLER: LVIT A 112 E 62.0 LA RVSP 32 LVOT 259 AOP1/2T Asc. Ao 322 RVOT 111 RA PA 146 AV Gradient Peak 41.49 AV Mean 21.04 AV Area 2.0 MV Gradient Peak 5.60 MV Mean 2.03 MV Area COMMENTS: PA 111 CM/SEC OR 4.97 MMHG RVSP 32 MMHG Oceanographer Assistant: Darlene IBARRA Crew Car Driver:1 Dr. Wells TAPE# PACS TWO-DIMENSIONAL ECHOCARDIOGRAM WITH DOPPLER 1. Left ventricular chamber size is within normal limits. Left ventricular systolic function is normal. Overall ejection fraction is estimated at 60 percent. 2. Left atrium is mildly enlarged at 4.2 centimeters. Right atrium and right ventricular chamber sizes are within normal limits. 3. Valvular structures have normal structure and motion. There appears to be aortic outflow tract impingement, however, the valve is normal. There is, however, a gradient of 42 millimeters in the aortic outflow tract. There is systolic anterior motion of the mitral valve as well with this. ECHOCARDIOGRAM REPORT [id number] PALMIRA SIMONS 4. Doppler interrogation reveals only mild mitral regurgitation and mild tricuspid regurgitation. Pulmonary artery systolic pressure is normal at 32 millimeters of mercury. 5. No evidence of pericardial effusion or left ventricular thrombus. 6. 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 There is only mild mitral regurgitation as a result of this with systolic anterior motion of the mitral leaflets, but pulmonary systolic pressure is normal at 32 millimeters of mercury. ARTUR WELLS MD at 1017 CC: [id number] DICTATION DATE: 04/04/17 1400 STEAM TURBINE OPERATOR: JACK 04/06/17 1125 ADM IN [facility] [address] [place] [address]
--- NOTE | 2017-04-07 11:15 | NUR ---
Rehab Note- Acute Rehab Prescreen order received. The patient is having a cardiac cath today. Will follow at this time. Thank you for this referral! Josie Puri RN Clinical Liaison, [facility] Rehab
[2017-04-07 12:24] VITALS: BP 112/71
--- NOTE | 2017-04-07 14:35 | NUR ---
TO TETRYL NITRATOR OPERATOR VIA BED.
--- NOTE | 2017-04-07 15:36 | NUR ---
RETURNS FROM LICENSED ACUPUNCTURIST RECOVERY ROOM WITH DRESSING TO RIGHT GROIN, CDI. TO LAY FLAT X 3 HOURS. IV RESTARTED TO LEFT HAND AT NS INFUSING AT 200 CC/HR. WILL MONITOR. DR COOK HERE TO TALK TO PATIENT AND FEMALE EDIL.
--- NOTE | 2017-04-07 18:22 | NUR ---
RIGHT GROIN DRESSING IS STILL CDI. SITTING AT 30 DEGREES. CALL LIGHT IN USE.
--- NOTE | 2017-04-07 18:44 | NUR ---
ASSISTED PATIENT TO RESTROOM TO VOID. RIGHT GROIN DRESSING CDI, NO BLLEDING SEEN.
[2017-04-07 19:00] VITALS: BP 153/68
--- NOTE | 2017-04-07 19:55 | NUR ---
PT IS IN ROOM WITH FAMILY. C/O INDIGESTION. PT FEELS SHE NEEDS A SECOND OPINION. BUT NOT SURE WHERE OR WHEN, BECAUSE SHE IS NOT SURE WHAT HER DIAGNOSIS IS. PT ALSO ASKING ABOUT PROCEDURE TODAY, I WILL PRINT EDUCATION ON HEART CATHS AND ANGIOGRAPHYS FOR PT. NO S/S OF DISTRESS WILL CONTINUE TO MONITOR
[2017-04-08] VITALS: BP 137/64
--- NOTE | 2017-04-08 01:22 | NUR ---
PT RESTING IN BED AWAKE. ASKED FOR ICE CREAM. PT IS GETTING UP TO THE BATHROOM BY SELF. NO S/S OF DISTRESS. PT WILL CALL IF ANY NEEDS. WILL CONTINUE TO MONITOR
[2017-04-08 04:00] VITALS: BP 163/67
--- NOTE | 2017-04-08 05:59 | NUR ---
PT IN BED RESTING C/O 5/10 PAIN IN BACK AND HEAD. HALF OF ULTRAM AGAIN. WITH A TYLENOL. PT DEINES ANY OTHER NEEDS. NO S/S OF DISTRESS WILL CONTINUE TO MONITOR
[2017-04-08 08:00] VITALS: BP 139/60
[2017-04-08 09:15] LABS: SPE - ALBUMIN 2.7 g/dL (2.9-4.4); SPE - ALPHA-1 GLOBULIN 0.3 g/dL (0.0-0.4); SPE - ALPHA-2 GLOBULIN 0.9 g/dL (0.4-1.0); SPE - BETA GLOBULIN 1.1 g/dL (0.7-1.3); SPE - GAMMA GLOBULIN 0.5 g/dL (0.4-1.8); SPE - M-SPIKE Not Observed g/dL (Not Observed); SPE - TOTAL PROTEIN 5.5 g/dL (6.0-8.5)
--- NOTE | 2017-04-08 09:32 | NUR ---
Rehab Note- Awaiting consult from Dr. Lino after cardiac cath results from Dr. Ortiz's note. Will continue to follow at this time. Thank you for this referral! Josie Puri RN Clinical Liaison, [facility] Rehab
[2017-04-08 10:25] LABS: ANION GAP 15.3 mmol/L (8-16); CALCIUM 8.7 mg/dL (8.5-10.1); CARBON DIOXIDE 22.2 mmol/L (21.0-32.0); CREATININE - SERUM 1.5 mg/dL (0.6-1.3); POTASSIUM - SERUM 3.5 mmol/L (3.5-5.1)
[2017-04-08 10:31] LABS: BASOPHILS 0.2 % (0-2); EOSINOPHILS 2.5 % (0-7); HEMATOCRIT 32.1 % (36.0-48.0); IMMATURE GRANULOCYTES 4.8 % (0-5); LYMPHOCYTES 33.1 % (15-50); MCH 30.4 pg (26.0-34.0); MCHC 34.3 g/dL (31.0-37.0); MCV 88.7 fL (80.0-100.0); MEAN PLATELET VOLUME 9.3 fL (7.4-10.4); MONOCYTES 8.7 % (2-11); NEUTROPHILS 50.7 % (40-80); PLATELET COUNT 227 10x3/uL (130-400); RBC 3.62 10x6/uL (4.00-5.40); RDW 13.7 % (11.5-14.5); WBC 9.8 10x3/uL (4.8-10.8)
[2017-04-08 12:00] VITALS: BP 154/64
--- NOTE | 2017-04-08 13:25 | NUR ---
SPOKE WITH MAURICE RIVERO NP ON PHONE REGARDING PT WANTING XANAX PRN THROUGHOUT DAY AND NOT JUST AT NIGHT ( IT IS ORDERED). PT STATES SHE TAKES XANAX WHEN NEEDED. NEW TELEPHONE ORDERS RECEIVED FROM MAURICE RIVERO NP.
--- NOTE | 2017-04-08 15:55 | NUR ---
CONSENTS SIGNED FOR PROCEDURE TOMORROW AND PLACED IN CHART. PT INSTRUCTED TO NOT EAT OR DRINK ANYTHING AFTER MIDNIGHT TONIGHT. PT AGREES. NPO SIGN HUNG ON PTS DOOR.
[2017-04-08 16:00] VITALS: BP 166/61
--- NOTE | 2017-04-08 16:11 | NUR ---
Rehab Note- Dr. Ortiz scheduled to do cardiac cath with stenting 04/09/17. Will follow the patient at this time. Josie Puri RN Clinical Liaison, [facility] Rehab
[2017-04-08 16:18] LABS: BASOPHILS 0.2 % (0-2); EOSINOPHILS 2.1 % (0-7); HEMATOCRIT 31.7 % (36.0-48.0); IMMATURE GRANULOCYTES 4.4 % (0-5); LYMPHOCYTES 28.9 % (15-50); MCH 30.9 pg (26.0-34.0); MCHC 34.7 g/dL (31.0-37.0); MEAN PLATELET VOLUME 9.4 fL (7.4-10.4); MONOCYTES 9.3 % (2-11); NEUTROPHILS 55.1 % (40-80); PLATELET COUNT 209 10x3/uL (130-400); RBC 3.56 10x6/uL (4.00-5.40); RDW 13.7 % (11.5-14.5); WBC 11.3 10x3/uL (4.8-10.8)
--- NOTE | 2017-04-08 16:28 | NUR ---
PAGED MAURICE RIVERO NP REGARDING PT REQUESTING HIGHER DOSE OF TYLENOL. PT STATES SHE CAN HAVE 500MG BUT THAT ISN'T ENOUGH. WILL AWAIT CALLBACK FROM MAURICE RIVERO NP AND CONTINUE TO MONITOR.
[2017-04-08 16:32] LABS: ANION GAP 16.6 mmol/L (8-16); CALCIUM 8.7 mg/dL (8.5-10.1); CARBON DIOXIDE 21.2 mmol/L (21.0-32.0); CREATININE - SERUM 1.6 mg/dL (0.6-1.3); POTASSIUM - SERUM 3.8 mmol/L (3.5-5.1)
--- NOTE | 2017-04-08 16:32 | NUR ---
RECEIVED CALLBACK FROM MAURICE RIVERO NP WITH NEW ORDERS.
--- NOTE | 2017-04-08 19:15 | NUR ---
PT RESTING IN BED. C/O SLIGHT PAIN IN BACK AND A HEADACHE 01/05. TOLD PT HER TYLENOL CAN NOT BE GIVEN UNTIL 2200. SHE ASKED FOR HER XANAX AND TYLENOL BOTH AFTER 2200 DENIES ANY ULTRAM SAYS IT DOES NOT WORK FOR HER PAIN. NO OTHER NEEDS. NO S/S OF DISTRESS. PT DENIES ANY CHEST PAIN AT THIS TIME. WILL CONTINUE TO MONITOR
[2017-04-08 21:05] VITALS: BP 184/84
--- NOTE | 2017-04-09 | NUR ---
PT STATES PAIN IN BACK AND HEAD ARE NOW 1/10. STILL DENIES ANY CHEST PAIN. PT HAS GOT UP AND SHOWERED. AND IS NOW RESTING IN BED. HER WATER WAS TAKEN FROM BED SIDE TO ENSURE HER BEING NPO. PT VERBALIZES UNDERSTANDING OF NOT DRINKING OR EATING AND REMAINING NPO. PT WANTS TO SLEEP AND WILL CALL IF NEEDS ANYTHING. WILL CONTINUE TO MONITOR PT
[2017-04-09 01:19] VITALS: BP 175/75
[2017-04-09 05:48] LABS: BASOPHILS 0.4 % (0-2); EOSINOPHILS 2.4 % (0-7); HEMATOCRIT 30.9 % (36.0-48.0); HEMOGLOBIN 10.7 g/dL (12-16); IMMATURE GRANULOCYTES 5.4 % (0-5); LYMPHOCYTES 30.4 % (15-50); MCH 30.4 pg (26.0-34.0); MCHC 34.6 g/dL (31.0-37.0); MCV 87.8 fL (80.0-100.0); MEAN PLATELET VOLUME 9.3 fL (7.4-10.4); MONOCYTES 9.9 % (2-11); NEUTROPHILS 51.5 % (40-80); PLATELET COUNT 236 10x3/uL (130-400); RBC 3.52 10x6/uL (4.00-5.40); RDW 13.8 % (11.5-14.5); WBC 10.3 10x3/uL (4.8-10.8)
[2017-04-09 06:18] VITALS: BP 151/62
[2017-04-09 06:20] LABS: ANION GAP 15.5 mmol/L (8-16); CALCIUM 8.8 mg/dL (8.5-10.1); CARBON DIOXIDE 23.1 mmol/L (21.0-32.0); CREATININE - SERUM 1.4 mg/dL (0.6-1.3); POTASSIUM - SERUM 3.6 mmol/L (3.5-5.1)
--- NOTE | 2017-04-09 07:02 | NUR ---
PT IN BED. RESTLESS AND NERVOUS ABOUT HEART CATH. HER PRN XANAX WAS OFFERED. PT DECLINED SHE IS SCARED IT WILL INTERACT DURING CATH. PT C/O HEADACHE. TYLENOL GIVEN. PT IS NPO ONLY HAD 10CC OF WATER FOR TYLENOL AND PROTONIX. PT DENIES ANY OTHER NEEDS, NO S/S OF DISTRESS. WILL CONTINUE TO MONITOR
--- NOTE | 2017-04-09 07:12 | NUR ---
PT LAYING TO LEFT SIDE SLEEPING. RR EVEN AND UNLABORED. NO S/S DISTRESS NOTED WILL CONT TO MONITOR
[2017-04-09 07:24] LABS: MAGNESIUM - SERUM 1.6 mg/dL (1.8-2.4); PHOSPHOROUS 3.7 mg/dL (2.5-4.9)
[2017-04-09 08:09] VITALS: BP 135/52
--- NOTE | 2017-04-09 12:32 | NUR ---
PT BACK FROM PUMP SERVICER ALERT AND ORIENTED AWAKE. SITTING UP IN BED. R WRIST TR BAND ON BALLOON INFLATED. VS ARE WNL. PT DENIES ANY NEEDS, DAUGHTER AT BEDSIDE GRANDSON AT BEDSIDE WILL CONT TO MONITOR
[2017-04-09 12:52] VITALS: BP 147/72
--- NOTE | 2017-04-09 13:40 | NUR ---
PT STILL SITTING UP IN BED DENIES NEEDS. BP DID ELEVATE A LITTLE 170S SYSTOLIC. GOT PRN ORDER FROM MAURICE DALLAS FOR APPRESOLINE 10MG PIV, BP WENT DOWN TO 160S SYSTOLIC WHEN RECHECKED BEFORE THE PRN WAS GIVEN. WILL CONT TO MONITOR
--- NOTE | 2017-04-09 14:05 | NUR ---
PT BP BACK DOWN TO 154/73. WILL CONT TO MONITOR
[2017-04-09 16:19] VITALS: BP 134/62
--- NOTE | 2017-04-09 18:38 | NUR ---
PT SITTING UP IN BED DENIES NEEDS FAMILY AT BEDSIDE.
[2017-04-09 19:00] VITALS: BP 159/79
--- NOTE | 2017-04-09 19:30 | NUR ---
ALERT/AWAKE DENIES PAIN OR ANY NEEDS. RT WRIST DRSG C/D/I FROM CATH TODAY. IV IN L HAND INTACT SL. ORIENTED TO CALL LIGHT FOR ANY NEEDS.
--- NOTE | 2017-04-09 21:45 | NUR ---
ADMIN TYLENOL 650 MG PO PER REQUEST FOR C/O CHEST PAIN DESCRIBED "TENDER" AND XANAX FOR ANXIETY. NO OTHER NEEDS VOICED.
--- NOTE | 2017-04-09 23:30 | NUR ---
AMBULATING IN ROOM WITH WALKER. NO NEEDS VOICED.
[2017-04-10] VITALS: BP 134/71
--- NOTE | 2017-04-10 03:35 | NUR ---
ADMIN TYLENOL 650 MG PO PER REQUEST FOR C/O CHEST "TENDERNESS". NO OTHER NEEDS VOICED
[2017-04-10 04:00] VITALS: BP 168/72
[2017-04-10 05:31] LABS: MAGNESIUM - SERUM 1.7 mg/dL (1.8-2.4); PHOSPHOROUS 3.4 mg/dL (2.5-4.9); POTASSIUM - SERUM 3.8 mmol/L (3.5-5.1)
--- NOTE | 2017-04-10 07:30 | NUR ---
AM ROUNDS - PT ASLEEP, RR EVEN AND UNLABORED. BED IN LOWEST POSTION, CALL MILLER IN REACH, ROOM FREE FROM CLUTTER, WILL CTM.
[2017-04-10 08:12] VITALS: BP 175/61
--- NOTE | 2017-04-10 11:03 | NUR ---
Nutrition Follow Up: Pt reported that her appetite is good. She had several questions regarding diet, CHO counting. Questions answered and discussed. Pt is eating 68% meal avg on a diabetic diet. +BM 04/09/17. Wt gain since admit noted. Labs reviewed. Meds noted. Rec continue current diet. RD following.
--- NOTE | 2017-04-10 11:44 | NUR ---
Rehab Note- Visitied with the patient and her daughter, very interested in coming to [facility]. Will plan to accept the patient when ready for discharge from the acute hospital. Thank you for this referral! Josie Puri RN Clinical Liaison, [facility] Rehab
[2017-04-10 12:13] VITALS: BP 167/75
[2017-04-10] MEDS ORDERED: PLAVIX75 MG PO (12:19)
[2017-04-10] MEDS ORDERED: ULTRAM50 MG PO (12:21)
[2017-04-10] MEDS ORDERED: FLORAJEN3 CAPS460 MG PO (12:21)
[2017-04-10] MEDS ORDERED: AMPICILLIN TRI500 MG PO (12:36)
[2017-04-10] MEDS ORDERED: HYDRALAZINE20 MG/ML IV (12:37)
[2017-04-10] MEDS ORDERED: TOPROL XL100 MG PO (13:14)
--- NOTE | 2017-04-10 14:26 | NUR ---
Patient Name: PALMIRA SIMONS Encounter No: [id number] : 1940 Primary Insurance: MEDICARE A & B Anticipated DC Date: 04-08-2017 Planned Disposition: Inpatient Rehab External Planned Provider: [facility] DCP follow-up note: CM SPOKE TO [facility], THEY PLAN TO ACCEPT PT TODAY FOR REHAB. PT NOTIFIED, IN AGREEMENT WITH DISCHARGE TO INPATIENT REHAB. IMPORTANT MESSAGE FROM MEDICARE PROVIDED AND EXPLAINED. PT TO ADMIT TO ROOM 1115. NURSE REPORT TO BE CALLED TO [facility]. Jb Sandoval, CASE MANAGEMENT
== END 2017-04-10 18:09 | DRG 248 ==
LOC: D.ER 13:49 → OBSVTIME 17:42 → D.M2 17:42
PROVIDERS: Emergency Medicine; Internal Medicine Cardiovascular Disease; Internal Medicine Nephrology; ADMIT Emergency Medicine
PROC: B2151ZZ Fluoroscopy of Left Heart using Low Osmolar Contrast (ICD-10-PCS; 2017-04-07)
PROC: 4A023N7 Measurement of Cardiac Sampling and Pressure, Left Heart, Percutaneous Approach (ICD-10-PCS; 2017-04-07)
PROC: B2111ZZ Fluoroscopy of Multiple Coronary Arteries using Low Osmolar Contrast (ICD-10-PCS; principal; 2017-04-07 14:00)
PROC: 02713EZ Dilation of Coronary Artery, Two Arteries with Two Intraluminal Devices, Percutaneous Approach (ICD-10-PCS; 2017-04-09)
DX: I13.0 Hypertensive heart and chronic kidney disease with heart failure and stage 1 through stage 4 chronic kidney disease, or unspecified chronic kidney disease (principal); I50.31 Acute diastolic (congestive) heart failure; N17.9 Acute kidney failure, unspecified; N39.0 Urinary tract infection, site not specified; N18.9 Chronic kidney disease, unspecified; E11.22 Type 2 diabetes mellitus with diabetic chronic kidney disease; E11.65 Type 2 diabetes mellitus with hyperglycemia; F41.9 Anxiety disorder, unspecified; M54.9 Dorsalgia, unspecified; G89.29 Other chronic pain; B95.2 Enterococcus as the cause of diseases classified elsewhere; I42.2 Other hypertrophic cardiomyopathy

== ENCOUNTER 2017-04-10 14:31 | Inpatient (IN) | payer MEDICARE ==
[~2017-04-10] VITALS: Ht 153.7 cm; Wt 86.0 kg
[~2017-04-10 14:31] MED LIST: AMPICILLIN TRI500 MG PO; AVAPRO150 MG PO; COMPAZINE10 MG PO; FLORAJEN3 CAPS460 MG PO; HYDRALAZINE20 MG/ML IV; NEXIUM40 MG PO; PLAVIX75 MG PO; TOPROL XL100 MG PO; ULTRAM50 MG PO; XANAX0.5 MG PO
--- NOTE | 2017-04-10 17:00 | NUR ---
PT DISCHARGED. DISCHARGE INSTRUCTIONS PROVIDED, PT VERBALIZED UNDERSTANDING. IV REMOVED WITH CATHETER TIP INTACT. PT SENT TO REHAB VIA WHEELCHAIR WITH TELEMETRY ON PER ORDERS. PT DENIES NEEDS WILL CALL WHEN READY TO BE TAKEN DOWN TO REHAB.
[2017-04-10 18:29] VITALS: BP 159/70; BMI 35.0
--- NOTE | 2017-04-10 18:55 | NUR ---
PATIENT IN BED, AWAKE. EVALUATED SORE AT TOP OF PATIENT'S GLUTEAL CLEFT IN CONCERT WITH TABITHA REY WHO IS CURRENTLY PERFORMING PATIENT'S ADMISSION ASSESSMENT.
[2017-04-10 19:30] VITALS: BP 156/74
--- NOTE | 2017-04-10 23:34 | NUR ---
CLEANSED X2 SPOTS IN BETWEEN TOP OF BUTTCRACK WITH WOUND CLEANSER AND PATTED DRY WITH 4X4'S AND TEGADERM APLLIED.
--- NOTE | 2017-04-11 03:30 | NUR ---
PT IN BED WITH HOB UP FOR COMFORT. WATCHING TV. WARM RAG APPLIED TO HEAD FOR HEADACHE. BED IN LOWEST POSITION AND CALL LIHGT WITHIN REACH.
[2017-04-11 06:11] LABS: ANION GAP 17.3 mmol/L (8-16); CALCIUM 9.1 mg/dL (8.5-10.1); CARBON DIOXIDE 22.4 mmol/L (21.0-32.0); CREATININE - SERUM 1.4 mg/dL (0.6-1.3); POTASSIUM - SERUM 3.7 mmol/L (3.5-5.1)
[2017-04-11 06:31] LABS: BASOPHILS 0.2 % (0-2); HEMATOCRIT 31.3 % (36.0-48.0); HEMOGLOBIN 10.7 g/dL (12-16); IMMATURE GRANULOCYTES 3.5 % (0-5); MCH 30.2 pg (26.0-34.0); MCHC 34.2 g/dL (31.0-37.0); MCV 88.4 fL (80.0-100.0); MEAN PLATELET VOLUME 9.3 fL (7.4-10.4); MONOCYTES 11.9 % (2-11); NEUTROPHILS 48.4 % (40-80); PLATELET COUNT 276 10x3/uL (130-400); RBC 3.54 10x6/uL (4.00-5.40); RDW 13.9 % (11.5-14.5); WBC 9.1 10x3/uL (4.8-10.8)
--- NOTE | 2017-04-11 07:10 | NUR ---
SITTING UP IN BED EATING JELLO. DENIES ANY CONCERNS AT THIS TIME. CALL LIGHT IN REACH. WILL CONTINUE TO MONITOR.
[2017-04-11 08:00] VITALS: BP 174/77
--- NOTE | 2017-04-11 08:00 | NUR ---
SHIFT ASSMT COMPLETED.C-COLLAR IN PLACE.ABRASION AND BRUISE ON TOP OF HEAD.UP OOB WITH MOD ASSIST, AT BEDSIDE.MEAL SET-UP PROVIDED. ASSISTING IN FEEDING PATIENT.MENTIONED SEVERAL TIMES ABOUT ALLOWING HIM TO FEED HIMSELF.CL IN REACH.
--- NOTE | 2017-04-11 09:30 | NUR ---
IN ROOM WITH OCCUPATIONAL THERAPY AND DAUGHTER ASSISTING WITH SHOWER. WILL ADMINISTER MEDS WHEN SHOWER IS COMPLETED.
[2017-04-11 10:04] VITALS: Ht 153.7 cm; Wt 86.0 kg
--- NOTE | 2017-04-11 10:17 | NUR ---
JUST FINISHED UP WITH SHOWER WITH OT;ALYSIA WELL.SITTING ON BED.CL IN REACH.
--- NOTE | 2017-04-11 12:11 | NUR ---
SITTING UP IN CHAIR EATING LUNCH. DENIES ANY NEEDS. CALL LIGHT IN REACH
--- NOTE | 2017-04-11 18:22 | NUR ---
LYING IN BED WATCHING TV. DENIES ANY NEEDS CALL LIGHT IN REACH
--- NOTE | 2017-04-11 19:55 | NUR ---
PT. IN BED WITH HOB UP FOR COMFORT AND WATCHING TV. NO VOICED NEEDS AT THIS TIME. ASSESSMENT COMPLETED. CALL LIGHT WITHIN REACH.
[2017-04-11 20:30] VITALS: BP 142/73
--- NOTE | 2017-04-11 23:11 | NUR ---
PT. IN BED LYING ON HER LEFT SIDE WITH EYES CLOSED AND RESP. EVEN. CALL LIGHT WITHIN REACH.
--- NOTE | 2017-04-12 03:12 | NUR ---
PT. IN BED WITH HOB UP FOR COMFORT AND IS WATCHING TV. REQUESTED HEATING PACK BE REHEATED TO HELP WITH HER HEADACHE IT ISN'T TIME YET FOR MORE TYLENOL. CALL LIGHT WITHIN REACH.
--- NOTE | 2017-04-12 07:30 | NUR ---
LYING IN BED ON LEFT SIDE EYES CLOSED RESTING. EASILY AROUSED WITH VERBAL STIMULI. DENIES ANY NEEDS AT THIS TIME. CALL LIGHT IN REACH.
[2017-04-12 08:00] VITALS: BP 156/73
--- NOTE | 2017-04-12 08:10 | NUR ---
POSITIONED IN BED FOR MEAL.DENIES NEEDS.CL IN REACH
--- NOTE | 2017-04-12 09:45 | NUR ---
SITTING UP ON SIDE OF BED TALKING ON PHONE. UNABLE TO ADMINISTER ACYCLOVIR DUE TO BEING UNABLE TO SCAN CALLED PHARMACY AND THEY ADVISED THEY WOULD GET IT FIXED SOON THEY COULD WELL GETTING US THE AMPICILLIN 500MG NEEDED FOR THE PT. WILL ADMINISTER BOTH MEDS SOON PHARMACY CORRECTS ISSUES.
--- NOTE | 2017-04-12 09:46 | NUR ---
IN BED RESTING QUIETLY.CL IN REACH.
--- NOTE | 2017-04-12 10:30 | NUR ---
CALLED PHARMACY IN REGARDS TO AMPICILLIN 500MG AND SPOKE WITH AARON PHARMACIST. AARON ADVISED THAT THEY WOULD GET MED DOWN TO US SOON THEY COULD BUT IT MAY BE A WHILE. ADVISED PT I WOULD GET MED TO HER SOON I RECIEVED FROM PHARMACY. PT VERBALIZED UNDERSTANDING
--- NOTE | 2017-04-12 14:28 | NUR ---
LYING IN BED RESTING. DENIES ANY NEEDS. CALL LIGHT IN REACH
--- NOTE | 2017-04-12 17:06 | NUR ---
SITTING UP ON SIDE OF BED VISITING WITH FRIENDS. DENIES ANY NEEDS. CALL LIGHT IN REACH. WILL CONTINUE TO MONITOR
[2017-04-12 19:20] VITALS: BP 159/71
--- NOTE | 2017-04-12 19:45 | NUR ---
PT IN BED WITH HOB UP FOR COMFORT. VISITORS IN ROOM. ALERT & ORIENTED. UP ADLIB. NO O2. NO IV. MEDS WHOLE. TELEMETRY. BED IN LOWEST POSITION AND CALL LIGHT WITHIN REACH.
--- NOTE | 2017-04-12 23:40 | NUR ---
PT LYING IN BED APPEARS TO BE WATCHING TV, PT DENIES ANY NEEDS, RESPIRATIONS REGULAR AND UNLABORED.
--- NOTE | 2017-04-13 03:30 | NUR ---
PT IN BED WITH HOB UP FOR COMFORT. WATCHING TV. BED IN LOWEST POSITION AND CALL LIGHT WITHIN REACH.
--- NOTE | 2017-04-13 04:30 | NUR ---
PT IN BED WITH HOB UP FOR COMFORT. WATCHING TV. BED IN LOWEST POSITION AND CALL LIGHT WITHIN REACH.
[2017-04-13 06:47] LABS: BASOPHILS 0.1 % (0-2); EOSINOPHILS 1.5 % (0-7); HEMATOCRIT 30.4 % (36.0-48.0); HEMOGLOBIN 10.2 g/dL (12-16); IMMATURE GRANULOCYTES 1.1 % (0-5); MCH 30.4 pg (26.0-34.0); MCHC 33.6 g/dL (31.0-37.0); MEAN PLATELET VOLUME 9.2 fL (7.4-10.4); MONOCYTES 10.8 % (2-11); NEUTROPHILS 54.5 % (40-80); PLATELET COUNT 248 10x3/uL (130-400); RBC 3.36 10x6/uL (4.00-5.40); WBC 8.9 10x3/uL (4.8-10.8)
[2017-04-13 06:53] LABS: MCV 90.5 fL (80.0-100.0)
[2017-04-13 06:55] LABS: CALCIUM 8.9 mg/dL (8.5-10.1); CREATININE - SERUM 1.3 mg/dL (0.6-1.3)
[2017-04-13 08:16] VITALS: BP 175/63
--- NOTE | 2017-04-13 08:23 | NUR ---
PT RESTING IN BED WITH EYES OPEN CALL LIGHT IN REACH NO PROBLEMS WILL MONITER
--- NOTE | 2017-04-13 12:31 | NUR ---
PATIENT ADMITTED TO REHAB FROM ACUTE FLOOR. DR. OSORIO IS PCP AND ASIYA AT [facility] IS PHARMACY OF CHOICE.SHE HAD NO DME AT HOME.DISCHARGE PLANS ARE FOR PATIENT TO RETURN HOME.WILL CONTINUE TO FOLLOW WITH PATIENT.
--- NOTE | 2017-04-13 17:48 | NUR ---
PT RESTING IN BED WITH EYES OPEN CALL LIGHT IN REACH WILL MONITER
--- NOTE | 2017-04-13 19:25 | NUR ---
REST IN BED AND WATCH TV.
[2017-04-14 01:22] VITALS: BP 156/62
--- NOTE | 2017-04-14 02:15 | NUR ---
PT SITTING IN CHAIR IN ROOM, ROCKING BACK AND FORTH, PT APPEARS TO BE READY TO BURST INTO TEARS. INQUIRED REGARDING PT CONCERNS, SAT NEXT TO PT IN CHAIR, PT WAS EVENTUALLY ABLE TO PROCESS HER THOUGHTS AND FEARS RELATED TO PERSONAL RELATIONSHIPS AND HER OWN CHANGE IN HEALTH STATUS. PT WORRIED THAT XANAX AND AMITRYPTILINE MAY HAVE ADVERSE EFFECTS WHEN TAKEN TOGETHER. PT WASN'T SURE IF DREAM WAS A 'DREAM' OR 'HALLUCINATION.' AT APPROXIMATELY 0245 PT DECIDED IT WAS SAFE FOR HER TO LIE DOWN. PT DENIES SUICIDITY OR A PLAN.
--- NOTE | 2017-04-14 09:59 | NUR ---
Nutrition Follow Up: Pt is eating 97% meal avg on a diabetic diet. Wt stable. +BM 04/13/17. Meds and labs reviewed. Rec continue current diet. RD following.
--- NOTE | 2017-04-14 12:30 | NUR ---
PT IN ROOM WITH REEMA DISCUSSING FOOD OPTION NOT HAPPY WITH THE MEAL SHE RECIVIED YING GRACIA
--- NOTE | 2017-04-14 14:36 | NUR ---
PT IN THERAPY TOLERATING WELL
--- NOTE | 2017-04-14 18:32 | NUR ---
RESTING QUIETLY IN BED. NO S/S DISTRESS. CALL LIGHT IN REACH
--- NOTE | 2017-04-14 19:40 | NUR ---
PT. SITTING UP IN BED VISITING WITH 2 FRIENDS. ASSESSMENT WILL BE COMPLETED AFTER GUESTS HAVE LEFT. NO VOICED NEEDS AT THIS TIME AND HER CALL LIGHT IS WITHIN REACH.
[2017-04-14 21:44] VITALS: BP 167/65
--- NOTE | 2017-04-14 23:18 | NUR ---
PT. IN BED WITH HOB UP FOR COMFORT WATCHING TV. NO VOICED NEEDS AT THIS TIME AND SHE HAS HER CALL LIGHT WITHIN REACH.
--- NOTE | 2017-04-15 03:12 | NUR ---
PT. SITTING ON THE SIDE OF HER BED WRITING SHE CAN'T SLEEP. PT. HAS NO VOICED NEEDS AT THIS TIME AND WILL LET NURSE KNOW IF AND WHEN SHE NEEDS SOMETHING. CALL LIGHT REMAINS WITHIN REACH.
[2017-04-15 07:39] LABS: BASOPHILS 0.1 % (0-2); EOSINOPHILS 2.1 % (0-7); HEMATOCRIT 29.8 % (36.0-48.0); HEMOGLOBIN 9.9 g/dL (12-16); IMMATURE GRANULOCYTES 0.6 % (0-5); MCH 30.1 pg (26.0-34.0); MCHC 33.2 g/dL (31.0-37.0); MCV 90.6 fL (80.0-100.0); MEAN PLATELET VOLUME 8.8 fL (7.4-10.4); MONOCYTES 9.8 % (2-11); NEUTROPHILS 51.4 % (40-80); PLATELET COUNT 242 10x3/uL (130-400); RBC 3.29 10x6/uL (4.00-5.40); WBC 8.3 10x3/uL (4.8-10.8)
[2017-04-15 07:57] LABS: ANION GAP 16.7 mmol/L (8-16); CALCIUM 8.3 mg/dL (8.5-10.1); CARBON DIOXIDE 20.2 mmol/L (21.0-32.0); CREATININE - SERUM 1.5 mg/dL (0.6-1.3); POTASSIUM - SERUM 3.9 mmol/L (3.5-5.1)
--- NOTE | 2017-04-15 08:00 | NUR ---
SHIFT ASSMT COMPLETED.DENIES NEEDS.CL IN REACH.BREAKFAST GIVEN.
[2017-04-15 08:55] VITALS: BP 128/71
--- NOTE | 2017-04-15 12:00 | NUR ---
EATING MEAL.DENIES NEEDS.DAUGHTER AT BEDSIDE.
--- NOTE | 2017-04-15 15:03 | NUR ---
CARE TEAM MEETING: PATIENT AND DAUGHTER ATTENDED MEETING. DISCUSSED PATIENTS QUESTIONS AND CONCERNS. PATIENT DOING WELL IN THERAPY.SHE IS ANXIOUS ABOUT GOING HOME.[facility] DISCHARGE DATE IS 04/17/17. SHE WILL DISCHARGE HOME WITH HOME HEALTH AND REFERRAL MADE TO [facility] FOR POSSIBLE ADMISSION.
--- NOTE | 2017-04-15 16:00 | NUR ---
DENIES NEEDS.CL IN REACH.
--- NOTE | 2017-04-15 19:20 | NUR ---
PT. IN BED WITH HOB UP FOR COMFORT AND IS VISITING WITH A FRIEND. ASSESSMENT WILL BE COMPLETED LATER. PT. DENIES ANY NEEDS AT THIS TIME AND HER CALL LIGHT IS WITHIN REACH.
[2017-04-15 20:38] VITALS: BP 185/63
--- NOTE | 2017-04-15 23:19 | NUR ---
PT. IN BED WITH HOB UP FOR COMFORT WATCHING TV. PT. DENIES ANY NEEDS AND HAS HER CALL LIGHT WITHIN REACH.
--- NOTE | 2017-04-16 08:00 | NUR ---
SITTING UP IN BED.CL IN REACH.
--- NOTE | 2017-04-16 08:00 | NUR ---
PT IS RESTING IN BED WITH EYES OPEN. ALERT AND ORIENTED X 3. VOICED COMPLAINT OF HEADACHE. MEDICATED PER HER REQUEST PER MAR. PT IS ANXIOUS ABOUT DC HOME TOMORROW, AND IS ASKING MANY QUESTIONS RELATED TO THIS. TELEMETRY UNIT IS ON AND INTACT. SR'S ARE UP X 3 IN BED. CALL LIGHT AND BEDSIDE TABLE ARE WITHIN EASY REACH.
[2017-04-16 08:47] VITALS: BP 182/68
--- NOTE | 2017-04-16 10:08 | NUR ---
PT IS PARTICIPATING IN THERAPY AT THIS TIME.
--- NOTE | 2017-04-16 12:01 | NUR ---
PT IS RESTING IN BED WITH EYES CLOSED. RESPS ARE EVEN AND UNLABORED. NO ACUTE DISTRESS NOTED.
[2017-04-16 12:14] LABS: CKMB 0.8 U/L (0.0-3.6); CREATINE KINASE 33 UL (21-215); TROPONIN-I 0.024 ng/mL (0.000-0.060)
--- NOTE | 2017-04-16 14:21 | NUR ---
PT RESTING IN BED. NO ACUTE DISTRESS NOTED.
--- NOTE | 2017-04-16 16:37 | NUR ---
PT IS WATCHING TV IN HER ROOM. NO ACUTE DISTRESS NOTED.
[2017-04-16 18:52] LABS: CKMB 0.7 U/L (0.0-3.6); CREATINE KINASE 40 UL (21-215); TROPONIN-I 0.028 ng/mL (0.000-0.060)
[2017-04-16 19:00] VITALS: BP 179/72
--- NOTE | 2017-04-16 19:15 | NUR ---
PT IN BED WITH HOB UP FOR COMFORT. WATCHING TV. ALERT & ORIENTED. UP ADLIB. NO O2. NO IV. MEDS WHOLE. TELEMETRY. BED IN LOWEST POSITION AND CALL LIGHT WITHIN REACH.
--- NOTE | 2017-04-16 19:55 | NUR ---
SPENT ABOUT 25 MINUTES WITH PATIENT REGARDING HER CHEST PAIN VS ANXIETY. REVIEWED PAIN SCALE TO VERIFY THAT WE HAVE AN ACCURATE PICTURE OF HER PAIN. PATIENT ADMITS THAT WHEN SHE IS UPSET OR NERVOUS/ANXIOUS, IT EXACERBATES HER PERCEPTION OF PAIN. REPORTS SHE HAD TAKEN ZOLOFT IN THE PAST AT HOME AND IT MANAGED HER ANXIETY SYMPTOMS WITHOUT SIDE EFFECTS, BUT THAT SHE IS NOT RECEIVING IT SHE TOOK HERSELF OFF IT LONG PRIOR TO ADMISSION TO HOSPITAL AND DID NOT LIST IT A HOME MEDICATION. TOLD HER TO REPORT THIS TO HER MD AFTER DISCHARGE TO SEE IF HE WANTED HER TO RESUME IT.
[2017-04-16 23:19] LABS: CKMB 0.8 U/L (0.0-3.6); CREATINE KINASE 35 UL (21-215); TROPONIN-I < 0.017 ng/mL (0.000-0.060)
--- NOTE | 2017-04-16 23:55 | NUR ---
PT IN BED WITH HOB UP FOR COMFORT. WATCHING TV. BED IN LOWEST POSITION AND CALL LIGHT WITHIN REACH.
--- NOTE | 2017-04-17 03:50 | NUR ---
PT IN BED WITH HOB UP FOR COMFORT. WATCHING TV AND EATING MANAN CRACKERS. BED IN LOWEST POSITION AND CALL LIGHT WITHIN REACH.
--- NOTE | 2017-04-17 06:00 | NUR ---
PT IN BED WITH HOB UP FOR COMFORT. EYES CLOSED. CHEST RISING AND FALLING. BED IN LOWEST POSITION AND CALL LIGHT WITHIN REACH.
--- NOTE | 2017-04-17 07:20 | NUR ---
SITTING UP ON SIDE OF BED EATING BREAKFAST. DENIES ANY NEEDS. CALL LIGHT IN REACH.
[2017-04-17 07:27] LABS: BASOPHILS 0.1 % (0-2); EOSINOPHILS 2.3 % (0-7); HEMATOCRIT 30.3 % (36.0-48.0); HEMOGLOBIN 10.3 g/dL (12-16); IMMATURE GRANULOCYTES 0.3 % (0-5); LYMPHOCYTES 39.4 % (15-50); MCH 30.7 pg (26.0-34.0); MCV 90.4 fL (80.0-100.0); MEAN PLATELET VOLUME 8.9 fL (7.4-10.4); MONOCYTES 7.8 % (2-11); NEUTROPHILS 50.1 % (40-80); PLATELET COUNT 253 10x3/uL (130-400); RBC 3.35 10x6/uL (4.00-5.40); WBC 7.9 10x3/uL (4.8-10.8)
[2017-04-17 07:44] LABS: ANION GAP 16.4 mmol/L (8-16); CALCIUM 8.7 mg/dL (8.5-10.1); CARBON DIOXIDE 20.5 mmol/L (21.0-32.0); CREATININE - SERUM 1.7 mg/dL (0.6-1.3); POTASSIUM - SERUM 3.9 mmol/L (3.5-5.1)
[2017-04-17 08:00] VITALS: BP 180/71
[2017-04-17] MEDS ORDERED: ACYCLOVIR15 GM TOPICAL (08:32)
--- NOTE | 2017-04-17 09:16 | NUR ---
PT STANDING AT SINK BRUSHING TEETH. AMBULATING WELL. DENIES ANY PAIN ONLY A SMALL HEADACHE. CALL LIGHT IN REACH. WILL CONTINUE TO MONITOR.
--- NOTE | 2017-04-17 10:46 | NUR ---
PATIENT DISCHARGING HOME WITH DAUGHTER TODAY.[facility] WILL FOLLOW WITH PATIENT AT HOME. NO DME NEEDED AT THIS TIME. DR. OSORIO 04/29/17 @ 1:20, DR. COOK 05/25/17 @ 11:30. PATIENT CHOICE FORM FOR HOME HEALTH AND [facility] FORM SIGNED, EXPLIANED AND FILED IN CHART. ORDERS HAVE BEEN FAXED WITH CONFORMATION RECIEVED. PATIENT HAS SIGNED MEDICAL RECORD RELEASE FORM FOR PATIENT RECORDS.
--- NOTE | 2017-04-17 11:11 | NUR ---
SITTING UP ON SIDE OF BED TALKING ON PHONE. DENIES ANY NEEDS. CALL LIGHT IN REACH
--- NOTE | 2017-04-17 15:28 | NUR ---
SITTING UP IN CHAIR. DENIES ANY NEEDS AT THIS TIME. WILL CONTINUE TO MONITOR.
--- NOTE | 2017-04-17 18:33 | NUR ---
REVIEWED D/C INSTRUCTIONS AND MEDICATIONS WITH PATIENT. CONCERNS VOICED ABOUT MEDICATIONS CALLED IN AND DID NOT LIKE THE FACT THAT THEY ALL WERE CALLED INTO PHARMACY AND THAT SHE WOULD NOT BE PICKING THEM UP. ADVISED PATIENT THAT IT WAS HER CHOICE BUT IT WAS HOSPITAL PROTOCOL TO CALL ALL D/C MEDS INTO PHARMACY. PT VERBALIZED UNDERSTANDING.ALL PT BELONGINGS ARE PACKED UP AND WAITING ON DAUGHTERS ARRIVAL TO GO HOME.
--- NOTE | 2017-04-17 19:07 | NUR ---
CALLED IN MEDS TO [facility] [phone] SPOKE TO PHARMACIST.
--- NOTE | 2017-04-17 19:08 | NUR ---
ASSISTED PT TO PERSONAL VEHICLE VIA WHEELCHAIR ACCOMPAINED BY DAUGHTER AND PERSONAL BELONGINGS. BUCKLED PT UP IN FRONT SEAT OF CAR DRIVEN BY DAUGHTER.
== END 2017-04-17 18:58 | disposition home health service (06) | DRG 293 ==
LOC: D.REHAB 14:31
PROVIDERS: ADMIT Emergency Medicine
DX: I13.0 Hypertensive heart and chronic kidney disease with heart failure and stage 1 through stage 4 chronic kidney disease, or unspecified chronic kidney disease (principal); E11.22 Type 2 diabetes mellitus with diabetic chronic kidney disease; N18.9 Chronic kidney disease, unspecified; I25.10 Atherosclerotic heart disease of native coronary artery without angina pectoris; F41.9 Anxiety disorder, unspecified; M79.605 Pain in left leg; M79.604 Pain in right leg; I50.9 Heart failure, unspecified; R79.89 Other specified abnormal findings of blood chemistry; E11.65 Type 2 diabetes mellitus with hyperglycemia